=== PATIENT | male | born 1930 | race African-American/Black ===

== ENCOUNTER 2021-05-05 21:51 | Emergency (ER) | payer MEDICARE, MEDICAID ==
[2021-05-05] MEDS ORDERED: Lorazepam 2 MG/ML VIAL ONE (22:24)
[2021-05-05] MEDS ORDERED: levETIRAcetam in NS 100 ML ONE (22:43)
[2021-05-05 22:49] LABS: #Eosinphils 0.1 10x3/uL (0.0-0.5); #Monocytes 0.7 10x3/uL (0.0-1.1); #Neutrophils 4.7 10x3/uL (1.5-8.4); %Basophils 0.6 % (0.0-2.0); %Eosinophils 1.8 % (0.0-6.0); %Monocytes 10.2 % (0.0-10.0); Hemoglobin 13.7 g/dL (13.5-17.5); Mean Corpuscular HGB CONC 33.4 g/dL (32.0-36.0); Mean Corpuscular Hemoglobin 34.5 pg (27.0-33.0); Mean Corpuscular Volume 103.3 fl (81.2-95.1); Mean Platelet Volume 10.5 fl (7.4-10.4); Platelet Count 189 10x3/uL (150-450); RBC Distribution Width 13.1 % (11.5-14.5); Red Blood Cell (RBC) Count 3.97 10x6/uL (4.32-5.72); White Blood Cell (WBC) Count 7.2 10x3/uL (3.5-10.5)
[2021-05-05 22:53] LABS: INR-International Normal Ratio 1.1; PTT Less than 20.0 sec (22.0-33.0); Prothrombin Time 11.9 sec (9.5-12.1)
[2021-05-05 22:54] LABS: ALT (SGPT) 17 U/L (8-55); AST (SGOT) 17 U/L (5-34); Alkaline Phosphatase 65 U/L (40-110); Anion Gap 26 mmol/L (10-20); BUN (Urea Nitrogen) 18 mg/dL (8.4-25.7); Bilirubin, Total 0.4 mg/dL (0.2-1.2); Calc. Creatinine Clearance 0 mL/min (70-130); Carbon Dioxide 14 mmol/L (23-31); Chloride 100 mmol/L (98-107); Globulin 4.1 g/dL (2.4-3.5); Glucose 127 mg/dL (83-110); Potassium 3.7 mmol/L (3.5-5.1); Protein, Total 8.1 g/dL (5.8-8.1); Sodium 136 mmol/L (136-145)
[2021-05-05 23:45] LABS: SARS-CoV-2 NAA Rapid Test Not Detected (NotDetected)
[2021-05-06] MEDS ORDERED: PHENobarbital Sodium 65 MG/ML VIAL ONE (00:23)
[2021-05-06] MEDS ORDERED: Aspirin 300 MG Suppository ONE (00:24)
[2021-05-06] MEDS ORDERED: levETIRAcetam in NS 100 ML ONE (00:24)
[2021-05-06] MEDS ORDERED: hydrALAZINE 20 MG/ML VIAL ONE (03:09)
== END 2021-05-06 03:38 | disposition short-term general hospital (02) ==
LOC: EEVIPCON 21:51 → CSHERS 21:51
DX: I63.9 Cerebral infarction, unspecified (principal); G40.909 Epilepsy, unspecified, not intractable, without status epilepticus; Z20.822 Contact with and (suspected) exposure to COVID-19
CPT/HCPCS: 70450; 70496; 70498; 71045; 80053; 80184; 82962; 84484; 85025; 85610; 85730; 93005; U0002; 36416; 96365; 96375; 96376; J0360; J1953; J2060; J2560

== ENCOUNTER 2021-05-30 08:34 | Inpatient (IN) | payer MEDICARE, OTHER ==
[2021-05-30] MEDS ORDERED: Acetaminophen 500 MG TAB ONE (09:13)
[2021-05-30 09:23] LABS: #Monocytes 0.5 10x3/uL (0.0-1.1); %Basophils 0.1 % (0.0-2.0); %Eosinophils 0.1 % (0.0-6.0); %Lymphocytes 3.7 % (18.0-47.0); %Monocytes 6.2 % (0.0-10.0); %Neutrophils 89.1 % (40.0-75.0); Hemoglobin 14.1 g/dL (13.5-17.5); Mean Corpuscular HGB CONC 37.2 g/dL (32.0-36.0); Mean Corpuscular Hemoglobin 37.4 pg (27.0-33.0); Mean Corpuscular Volume 100.5 fl (81.2-95.1); Mean Platelet Volume 10.5 fl (7.4-10.4); Platelet Count 277 10x3/uL (150-450); RBC Distribution Width 12.4 % (11.5-14.5); Red Blood Cell (RBC) Count 3.77 10x6/uL (4.32-5.72); White Blood Cell (WBC) Count 7.9 10x3/uL (3.5-10.5)
[2021-05-30 09:37] LABS: ALT (SGPT) 37 U/L (8-55); AST (SGOT) 60 U/L (5-34); Albumin 3.6 g/dL (3.4-4.8); Alkaline Phosphatase 58 U/L (40-110); Anion Gap 20 mmol/L (10-20); BUN (Urea Nitrogen) 30 mg/dL (8.4-25.7); Bilirubin, Total 0.6 mg/dL (0.2-1.2); Calc. Creatinine Clearance 0 mL/min (70-130); Carbon Dioxide 20 mmol/L (23-31); Chloride 106 mmol/L (98-107); Globulin 4.9 g/dL (2.4-3.5); Glucose 151 mg/dL (83-110); Potassium 3.3 mmol/L (3.5-5.1); Protein, Total 8.5 g/dL (5.8-8.1); Sodium 143 mmol/L (136-145)
[2021-05-30] MEDS ORDERED: Cefepime 2 GM VIAL ONE (09:45)
[2021-05-30 09:55] LABS: CKMB 1.6 ng/mL (0-6.6)
[2021-05-30] MEDS ORDERED: Vancomycin 1.5 GRAM/300 ML BAG 1.5 GM in Premix Bag 1 BAG IVPB SCH (10:00)
[2021-05-30 10:03] LABS: SARS-CoV-2 NAA Rapid Test DETECTED (NotDetected)
[2021-05-30] MEDS ORDERED: HYDROcodone/Acetaminophen 5/325 mg Tablet PO PRN (12:01)
[2021-05-30] MEDS ORDERED: Ondansetron PF 4 MG/2 ML Vial IVP PRN (12:01)
[2021-05-30 13:09] LABS: Lactic Acid 1.3 mmol/L (0.5-2.2)
[2021-05-30] MEDS ORDERED: Electrolyte Replacement Protocol 1 EACH FS SCH (13:15)
[2021-05-30 13:19] LABS: Troponin I 0.043 ng/mL (< 0.028)
[2021-05-30] MEDS ORDERED: Magnesium 2 GM/50 ML 2 GM in Premix Bag 1 BAG IVPB SCH (15:00)
[2021-05-30] MEDS ORDERED: Potassium Chloride 20 MEQ TAB PO SCH (15:00)
[2021-05-30 17:04] LABS: Troponin I 0.038 ng/mL (< 0.028)
[2021-05-30] MEDS: PHENobarbital 32.4 MG TAB PO SCH ×2 (17:06→21:29)
[2021-05-30] MEDS: Sodium Chloride 0.9% 1,000 ML IV SCH (17:07)
[2021-05-30] MEDS ORDERED: Vancomycin 1 GM in Premix Bag 1 BAG IVPB PRN (21:00)
[2021-05-30] MEDS: levETIRAcetam 500 MG TAB PO SCH (21:32)
[2021-05-30] MEDS: Famotidine 20 MG TAB PO SCH (21:33)
[2021-05-31] MEDS ORDERED: hydrALAZINE 20 MG/ML VIAL SLOW IVP SCH (02:00)
[2021-05-31] MEDS: Sodium Chloride 0.9% 1,000 ML IV SCH ×2 (02:01→23:41)
[2021-05-31 05:50] LABS: Anion Gap 17 mmol/L (10-20); BUN (Urea Nitrogen) 23 mg/dL (8.4-25.7); Calc. Creatinine Clearance 41 mL/min (70-130); Calcium 8.2 mg/dL (7.8-10.44); Carbon Dioxide 19 mmol/L (23-31); Chloride 109 mmol/L (98-107); Glucose 103 mg/dL (83-110); Magnesium 2.1 mg/dL (1.6-2.6); Potassium 3.5 mmol/L (3.5-5.1); Sodium 141 mmol/L (136-145)
[2021-05-31 06:02] LABS: #Eosinphils 0.1 10x3/uL (0.0-0.5); #Monocytes 0.5 10x3/uL (0.0-1.1); #Neutrophils 6.3 10x3/uL (1.5-8.4); %Basophils 0.3 % (0.0-2.0); %Eosinophils 0.8 % (0.0-6.0); %Monocytes 6.8 % (0.0-10.0); %Neutrophils 84.6 % (40.0-75.0); Hemoglobin 13.2 g/dL (13.5-17.5); Mean Corpuscular HGB CONC 36.8 g/dL (32.0-36.0); Mean Corpuscular Hemoglobin 35.9 pg (27.0-33.0); Mean Corpuscular Volume 97.6 fl (81.2-95.1); Mean Platelet Volume 10.6 fl (7.4-10.4); Platelet Count 261 10x3/uL (150-450); RBC Distribution Width 12.7 % (11.5-14.5); Red Blood Cell (RBC) Count 3.68 10x6/uL (4.32-5.72); White Blood Cell (WBC) Count 7.5 10x3/uL (3.5-10.5)
[2021-05-31] MEDS: Levothyroxine Sodium 100 MCG TAB PO SCH (06:07)
[2021-05-31] MEDS ORDERED: Potassium Chloride 20 MEQ TAB PO SCH (06:15)
[2021-05-31] MEDS: Amlodipine 10 MG TAB PO SCH (08:24)
[2021-05-31] MEDS: Atorvastatin Calcium 20 MG TAB PO SCH (08:24)
[2021-05-31] MEDS: Clopidogrel Bisulfate 75 MG TAB PO SCH (08:24)
[2021-05-31] MEDS: levETIRAcetam 500 MG TAB PO SCH ×2 (08:24→21:24)
[2021-05-31] MEDS: PHENobarbital 32.4 MG TAB PO SCH ×3 (08:24→21:24)
[2021-05-31] MEDS: Tamsulosin HCl 0.4 MG CAP PO SCH (08:24)
[2021-05-31] MEDS: Polyethylene Glycol 3350 17 GM Packet PO SCH (08:25)
[2021-05-31] MEDS ORDERED: Enoxaparin Sodium 30 MG/0.3 ML SYRINGE SC SCH (09:00)
[2021-05-31] MEDS ORDERED: Cefepime 0.5 GM, Admixture Fee 1 EACH in Sodium Chloride 0.9% 100 ML IVPB SCH (10:00)
[2021-05-31 10:56] LABS: Vancomycin, Random 8.6 ug/mL (See Comment)
[2021-05-31] MEDS ORDERED: VANCOMYCIN 1.25 GM/250 ML BAG 1.25 GM in Premix Bag 1 BAG IVPB SCH (12:00)
[2021-05-31] MEDS: hydrALAZINE 25 MG TAB PO SCH (21:23)
[2021-05-31] MEDS: Famotidine 20 MG TAB PO SCH (21:24)
[2021-05-31] MEDS: Oxybutynin 5 MG TAB PO SCH (23:41)
[2021-06-01 04:44] LABS: Anion Gap 16 mmol/L (10-20); BUN (Urea Nitrogen) 17 mg/dL (8.4-25.7); Calc. Creatinine Clearance 44 mL/min (70-130); Calcium 8.3 mg/dL (7.8-10.44); Carbon Dioxide 18 mmol/L (23-31); Chloride 108 mmol/L (98-107); Glucose 107 mg/dL (83-110); Potassium 3.7 mmol/L (3.5-5.1); Sodium 138 mmol/L (136-145)
[2021-06-01 04:46] LABS: #Eosinphils 0.1 10x3/uL (0.0-0.5); #Monocytes 0.5 10x3/uL (0.0-1.1); #Neutrophils 6.5 10x3/uL (1.5-8.4); %Basophils 0.3 % (0.0-2.0); %Lymphocytes 6.5 % (18.0-47.0); %Monocytes 6.1 % (0.0-10.0); %Neutrophils 85.4 % (40.0-75.0); Hemoglobin 13.2 g/dL (13.5-17.5); Mean Corpuscular HGB CONC 37.3 g/dL (32.0-36.0); Mean Corpuscular Hemoglobin 36.9 pg (27.0-33.0); Mean Corpuscular Volume 98.9 fl (81.2-95.1); Mean Platelet Volume 10.6 fl (7.4-10.4); RBC Distribution Width 12.6 % (11.5-14.5); Red Blood Cell (RBC) Count 3.58 10x6/uL (4.32-5.72); White Blood Cell (WBC) Count 7.7 10x3/uL (3.5-10.5)
[2021-06-01 04:47] LABS: Platelet Count 257 10x3/uL (150-450)
[2021-06-01 05:15] LABS: Platelet Morphology Comment Appears Adequate; RBC Morphology Normal
[2021-06-01] MEDS: Levothyroxine Sodium 100 MCG TAB PO SCH (05:32)
[2021-06-01] MEDS: Oxybutynin 5 MG TAB PO SCH ×3 (05:32→17:45)
[2021-06-01] MEDS ORDERED: Dexamethasone 10 MG in Sodium Chloride 0.9% 50 ML IVPB ONE (07:30)
[2021-06-01] MEDS ORDERED: Dexamethasone 20 MG/5 ML VIAL SLOW IVP SCH (07:45)
[2021-06-01] MEDS ORDERED: REMDESIVIR 200 MG in Sodium Chloride 0.9% 250 ML 210 ML IV SCH (09:00)
[2021-06-01] MEDS: levETIRAcetam 500 MG TAB PO SCH ×2 (09:28→20:53)
[2021-06-01] MEDS: hydrALAZINE 25 MG TAB PO SCH ×3 (09:28→20:52)
[2021-06-01] MEDS: Atorvastatin Calcium 20 MG TAB PO SCH (09:28)
[2021-06-01] MEDS: Clopidogrel Bisulfate 75 MG TAB PO SCH (09:28)
[2021-06-01] MEDS: PHENobarbital 32.4 MG TAB PO SCH ×3 (09:29→20:52)
[2021-06-01] MEDS: Amlodipine 10 MG TAB PO SCH (09:29)
[2021-06-01] MEDS: Tamsulosin HCl 0.4 MG CAP PO SCH (09:29)
[2021-06-01] MEDS: Enoxaparin Sodium 40 MG/0.4 ML SYRINGE SC SCH (09:29)
[2021-06-01] MEDS: Finasteride 5 MG TAB PO SCH (09:29)
[2021-06-01] MEDS: Folic Acid 1 MG TAB PO SCH (09:29)
[2021-06-01] MEDS: Polyethylene Glycol 3350 17 GM Packet PO SCH (09:30)
[2021-06-01] MEDS: Cefepime 1 GM in Sodium Chloride 0.9% 100 ML IVPB SCH (13:30)
[2021-06-01] MEDS ORDERED: PHENobarbital 32.4 MG TAB ONE (16:04)
[2021-06-01] MEDS: Sodium Chloride 0.9% 1,000 ML IV SCH ×2 (16:13→19:32)
[2021-06-01] MEDS: Famotidine 20 MG TAB PO SCH (20:52)
[2021-06-01] MEDS: Lactated Ringer's 1,000 ML IV SCH (20:52)
[2021-06-01] MEDS: Acetaminophen 325 MG TAB PO PRN (20:53)
[2021-06-02] MEDS: Oxybutynin 5 MG TAB PO SCH ×4 (00:02→18:24)
[2021-06-02 04:22] LABS: #Eosinphils 0.1 10x3/uL (0.0-0.5); #Monocytes 0.4 10x3/uL (0.0-1.1); %Basophils 0.3 % (0.0-2.0); %Eosinophils 1.1 % (0.0-6.0); %Lymphocytes 8.8 % (18.0-47.0); %Monocytes 5.5 % (0.0-10.0); %Neutrophils 83.5 % (40.0-75.0); Hemoglobin 12.9 g/dL (13.5-17.5); Mean Corpuscular HGB CONC 37.5 g/dL (32.0-36.0); Mean Corpuscular Hemoglobin 36.3 pg (27.0-33.0); Mean Corpuscular Volume 96.9 fl (81.2-95.1); Mean Platelet Volume 10.2 fl (7.4-10.4); Platelet Count 240 10x3/uL (150-450); RBC Distribution Width 12.7 % (11.5-14.5); Red Blood Cell (RBC) Count 3.55 10x6/uL (4.32-5.72); White Blood Cell (WBC) Count 7.1 10x3/uL (3.5-10.5)
[2021-06-02 04:40] LABS: ALT (SGPT) 27 U/L (8-55); AST (SGOT) 39 U/L (5-34); Albumin 2.9 g/dL (3.4-4.8); Alkaline Phosphatase 53 U/L (40-110); Anion Gap 13 mmol/L (10-20); BUN (Urea Nitrogen) 17 mg/dL (8.4-25.7); Bilirubin, Direct 0.3 mg/dL (0.1-0.3); Bilirubin, Total 0.4 mg/dL (0.2-1.2); Calc. Creatinine Clearance 53 mL/min (70-130); Calcium 8.4 mg/dL (7.8-10.44); Carbon Dioxide 21 mmol/L (23-31); Chloride 107 mmol/L (98-107); Glucose 109 mg/dL (83-110); Potassium 3.3 mmol/L (3.5-5.1); Protein, Total 7.2 g/dL (5.8-8.1); Sodium 138 mmol/L (136-145)
[2021-06-02] MEDS: Levothyroxine Sodium 100 MCG TAB PO SCH (05:37)
[2021-06-02] MEDS ORDERED: Potassium Chloride 20 MEQ TAB PO SCH (06:00)
[2021-06-02] MEDS: REMDESIVIR 100 MG in Sodium Chloride 0.9% 250 ML 230 ML IV SCH (08:30)
[2021-06-02] MEDS: hydrALAZINE 25 MG TAB PO SCH ×3 (10:23→20:22)
[2021-06-02] MEDS: Polyethylene Glycol 3350 17 GM Packet PO SCH (10:23)
[2021-06-02] MEDS: levETIRAcetam 500 MG TAB PO SCH ×2 (10:25→20:22)
[2021-06-02] MEDS: Amlodipine 10 MG TAB PO SCH (10:26)
[2021-06-02] MEDS: Finasteride 5 MG TAB PO SCH (10:27)
[2021-06-02] MEDS: Folic Acid 1 MG TAB PO SCH (10:27)
[2021-06-02] MEDS: Clopidogrel Bisulfate 75 MG TAB PO SCH (10:27)
[2021-06-02] MEDS: Atorvastatin Calcium 20 MG TAB PO SCH (10:27)
[2021-06-02] MEDS: PHENobarbital 32.4 MG TAB PO SCH ×3 (10:28→20:22)
[2021-06-02] MEDS: Tamsulosin HCl 0.4 MG CAP PO SCH (10:28)
[2021-06-02] MEDS: Cefepime 1 GM in Sodium Chloride 0.9% 100 ML IVPB SCH (10:29)
[2021-06-02] MEDS: Enoxaparin Sodium 40 MG/0.4 ML SYRINGE SC SCH (10:30)
[2021-06-02] MEDS ORDERED: Dexamethasone 10 MG in Sodium Chloride 0.9% 50 ML IVPB ONE (12:01)
[2021-06-02] MEDS ORDERED: Dexamethasone 20 MG/5 ML VIAL SLOW IVP SCH ×2 (12:30→12:45)
[2021-06-02] MEDS: Lactated Ringer's 1,000 ML IV SCH (13:48)
[2021-06-02] MEDS ORDERED: Piperacillin/Tazobactam 3.375 GM in Sodium Chloride 0.9% 100 ML IVPB SCH (15:45)
[2021-06-02] MEDS: Piperacillin/Tazobactam 3.375 GM in Sodium Chloride 0.9% 100 ML IVPB SCH (20:21)
[2021-06-02] MEDS: Famotidine 20 MG TAB PO SCH (20:22)
[2021-06-02] MEDS: Acetaminophen 325 MG TAB PO PRN (20:22)
[2021-06-03] MEDS: Oxybutynin 5 MG TAB PO SCH ×4 (00:01→18:35)
[2021-06-03] MEDS: Lactated Ringer's 1,000 ML IV SCH ×2 (00:01→15:55)
[2021-06-03 00:21] LABS: Bilirubin Neg (Negative); Blood, Urine 25 (Negative); Clarity Slightly Cloudy (Clear); Glucose, Urine (Dipstick) Normal (Negative); Ketone, Urine Negative (Negative); Leukocyte Negative (Negative); Nitrite Negative (Negative); Protein, Urine (Dipstick) 100 mg/dl (Neg-Trace); Specific Gravity, Urine 1.015 (1.002-1.036); Urobilinogen Normal mg/dL (Less than 2)
[2021-06-03 00:31] LABS: Bacteria/HPF Rare-Few HPF (None Seen); RBC/HPF 0-3 HPF (0-3); Squamous Epithelial 0-3 HPF (0-3); WBC/HPF 0-3 HPF (0-3)
[2021-06-03 00:32] LABS: Urine Culture Reflex No No
[2021-06-03] MEDS: Piperacillin/Tazobactam 3.375 GM in Sodium Chloride 0.9% 100 ML IVPB SCH ×4 (04:05→22:00)
[2021-06-03] MEDS: Levothyroxine Sodium 100 MCG TAB PO SCH (05:20)
[2021-06-03 06:34] LABS: ALT (SGPT) 23 U/L (8-55); AST (SGOT) 31 U/L (5-34); Albumin 2.8 g/dL (3.4-4.8); Alkaline Phosphatase 60 U/L (40-110); Anion Gap 15 mmol/L (10-20); BUN (Urea Nitrogen) 16 mg/dL (8.4-25.7); Bilirubin, Direct 0.3 mg/dL (0.1-0.3); Bilirubin, Total 0.5 mg/dL (0.2-1.2); Calc. Creatinine Clearance 52 mL/min (70-130); Calcium 8.1 mg/dL (7.8-10.44); Carbon Dioxide 20 mmol/L (23-31); Chloride 106 mmol/L (98-107); Glucose 111 mg/dL (83-110); Potassium 3.3 mmol/L (3.5-5.1); Protein, Total 7.2 g/dL (5.8-8.1); Sodium 138 mmol/L (136-145)
[2021-06-03 06:37] LABS: #Eosinphils 0.1 10x3/uL (0.0-0.5); #Monocytes 0.7 10x3/uL (0.0-1.1); #Neutrophils 6.8 10x3/uL (1.5-8.4); %Basophils 0.2 % (0.0-2.0); %Eosinophils 1.4 % (0.0-6.0); %Lymphocytes 5.9 % (18.0-47.0); %Neutrophils 83.5 % (40.0-75.0); Hemoglobin 13.4 g/dL (13.5-17.5); Mean Corpuscular HGB CONC 36.1 g/dL (32.0-36.0); Mean Corpuscular Hemoglobin 34.8 pg (27.0-33.0); Mean Corpuscular Volume 96.4 fl (81.2-95.1); Mean Platelet Volume 10.7 fl (7.4-10.4); Platelet Count 264 10x3/uL (150-450); RBC Distribution Width 12.9 % (11.5-14.5); Red Blood Cell (RBC) Count 3.85 10x6/uL (4.32-5.72); White Blood Cell (WBC) Count 8.1 10x3/uL (3.5-10.5)
[2021-06-03] MEDS ORDERED: Potassium Chloride 20 MEQ TAB PO SCH (08:00)
[2021-06-03] MEDS: levETIRAcetam 500 mg/5 ml Oral Solution PO SCH ×2 (08:53→22:03)
[2021-06-03] MEDS: Dexamethasone 20 MG/5 ML VIAL SLOW IVP SCH ×2 (08:53→13:08)
[2021-06-03] MEDS: REMDESIVIR 100 MG in Sodium Chloride 0.9% 250 ML 230 ML IV SCH ×2 (08:53→13:08)
[2021-06-03] MEDS: Enoxaparin Sodium 40 MG/0.4 ML SYRINGE SC SCH (08:54)
[2021-06-03] MEDS: Polyethylene Glycol 3350 17 GM Packet PO SCH (08:54)
[2021-06-03] MEDS: hydrALAZINE 25 MG TAB PO SCH ×3 (08:59→21:59)
[2021-06-03] MEDS ORDERED: Dexamethasone 20 MG/5 ML VIAL SLOW IVP SCH (09:00)
[2021-06-03] MEDS: PHENobarbital 32.4 MG TAB PO SCH ×3 (09:00→21:59)
[2021-06-03] MEDS ORDERED: Dexamethasone 6 MG in Sodium Chloride 0.9% 50 ML IVPB SCH (09:00)
[2021-06-03] MEDS: Amlodipine 10 MG TAB PO SCH (09:00)
[2021-06-03] MEDS ORDERED: Potassium Bicarbonate/Cit Ac 20 MEQ TAB PER TUBE SCH (09:00)
[2021-06-03] MEDS: Clopidogrel Bisulfate 75 MG TAB PO SCH (09:00)
[2021-06-03] MEDS: Folic Acid 1 MG TAB PO SCH (09:00)
[2021-06-03] MEDS: Atorvastatin Calcium 20 MG TAB PO SCH (09:00)
[2021-06-03] MEDS: Finasteride 5 MG TAB PO SCH (10:23)
[2021-06-03] MEDS: Tamsulosin HCl 0.4 MG CAP PO SCH (10:24)
[2021-06-03 14:04] LABS: Actual Bicarbonate (HCO3a) 21.8 mEq/L (22-28); Base Excess (BEa) 0.1 mEq/L (-2.0 to +3.0); CO2 Tension 27.8 mmHg (35.0-45.0); Carboxyhemoglobin (COHb) 0.4 gm% (0.0-3.0); Hemoglobin (Hb) 13.8 g/dL (14.0-18.0); O2 Tension (PaO2), arterial 136.9 mmHg (> 60.0); Potassium - ABG Lab 3.4 mmol/L (3.70-5.30); Puncture Site RRA; pH, Arterial 7.51 (7.35-7.45)
[2021-06-03 15:35] LABS: Potassium 3.9 mmol/L (3.5-5.1)
[2021-06-03] MEDS: Famotidine 20 MG TAB PO SCH (21:59)
[2021-06-04] MEDS: Oxybutynin 5 MG TAB PO SCH ×5 (00:25→22:54)
[2021-06-04] MEDS: hydrALAZINE 20 MG/ML VIAL SLOW IVP PRN ×2 (00:35→06:08)
[2021-06-04 04:42] LABS: #Eosinphils 0.1 10x3/uL (0.0-0.5); #Monocytes 0.8 10x3/uL (0.0-1.1); #Neutrophils 6.7 10x3/uL (1.5-8.4); %Basophils 0.4 % (0.0-2.0); %Eosinophils 0.8 % (0.0-6.0); %Lymphocytes 7.4 % (18.0-47.0); %Monocytes 9.7 % (0.0-10.0); %Neutrophils 79.9 % (40.0-75.0); Hemoglobin 12.7 g/dL (13.5-17.5); Mean Corpuscular HGB CONC 35.6 g/dL (32.0-36.0); Mean Corpuscular Hemoglobin 34.2 pg (27.0-33.0); Mean Corpuscular Volume 96.2 fl (81.2-95.1); Mean Platelet Volume 10.8 fl (7.4-10.4); Platelet Count 286 10x3/uL (150-450); RBC Distribution Width 13.1 % (11.5-14.5); Red Blood Cell (RBC) Count 3.71 10x6/uL (4.32-5.72); White Blood Cell (WBC) Count 8.3 10x3/uL (3.5-10.5)
[2021-06-04 04:49] LABS: Anion Gap 15 mmol/L (10-20); BUN (Urea Nitrogen) 17 mg/dL (8.4-25.7); Calc. Creatinine Clearance 53 mL/min (70-130); Calcium 7.6 mg/dL (7.8-10.44); Carbon Dioxide 21 mmol/L (23-31); Chloride 105 mmol/L (98-107); Glucose 103 mg/dL (83-110); Phosphorus 2.2 mg/dL (2.3-4.7); Potassium 3.4 mmol/L (3.5-5.1); Sodium 138 mmol/L (136-145)
[2021-06-04 04:52] LABS: ALT (SGPT) 25 U/L (8-55); AST (SGOT) 35 U/L (5-34); Albumin 2.6 g/dL (3.4-4.8); Alkaline Phosphatase 59 U/L (40-110); Bilirubin, Direct 0.3 mg/dL (0.1-0.3); Bilirubin, Total 0.4 mg/dL (0.2-1.2); Magnesium 1.6 mg/dL (1.6-2.6); Protein, Total 6.8 g/dL (5.8-8.1)
[2021-06-04] MEDS: Levothyroxine Sodium 100 MCG TAB PO SCH (05:16)
[2021-06-04] MEDS: Piperacillin/Tazobactam 3.375 GM in Sodium Chloride 0.9% 100 ML IVPB SCH ×3 (05:17→22:56)
[2021-06-04] MEDS ORDERED: Magnesium 2 GM/50 ML 2 GM in Premix Bag 1 BAG IVPB SCH (05:45)
[2021-06-04] MEDS ORDERED: Potassium Chloride 20 MEQ TAB PO SCH (06:00)
[2021-06-04] MEDS: Lactated Ringer's 1,000 ML IV SCH ×2 (06:56→11:31)
[2021-06-04] MEDS: Enoxaparin Sodium 40 MG/0.4 ML SYRINGE SC SCH (08:56)
[2021-06-04] MEDS: Polyethylene Glycol 3350 17 GM Packet PO SCH (08:56)
[2021-06-04] MEDS: hydrALAZINE 25 MG TAB PO SCH ×3 (08:57→22:53)
[2021-06-04] MEDS: Clopidogrel Bisulfate 75 MG TAB PO SCH (08:57)
[2021-06-04] MEDS: Finasteride 5 MG TAB PO SCH (08:57)
[2021-06-04] MEDS: Dexamethasone 20 MG/5 ML VIAL SLOW IVP SCH (08:57)
[2021-06-04] MEDS: Tamsulosin HCl 0.4 MG CAP PO SCH (08:57)
[2021-06-04] MEDS: Famotidine 20 MG TAB PO SCH ×2 (08:57→22:53)
[2021-06-04] MEDS: Amlodipine 10 MG TAB PO SCH (08:57)
[2021-06-04] MEDS: Atorvastatin Calcium 20 MG TAB PO SCH (08:57)
[2021-06-04] MEDS: Folic Acid 1 MG TAB PO SCH (08:57)
[2021-06-04] MEDS: PHENobarbital 32.4 MG TAB PO SCH ×3 (08:57→22:53)
[2021-06-04] MEDS: levETIRAcetam 500 mg/5 ml Oral Solution PO SCH ×2 (10:24→22:55)
[2021-06-04] MEDS ORDERED: Metoprolol Tartrate 5 MG/5 ML VIAL IVP PRN (10:28)
[2021-06-04] MEDS: REMDESIVIR 100 MG in Sodium Chloride 0.9% 250 ML 230 ML IV SCH (12:38)
[2021-06-04 13:06] LABS: Potassium 4.1 mmol/L (3.5-5.1)
[2021-06-04] MEDS ORDERED: Lisinopril 20 MG TAB PO SCH (13:30)
[2021-06-05 04:07] LABS: #Eosinphils 0.1 10x3/uL (0.0-0.5); #Monocytes 0.8 10x3/uL (0.0-1.1); #Neutrophils 8.1 10x3/uL (1.5-8.4); %Basophils 0.3 % (0.0-2.0); %Eosinophils 0.9 % (0.0-6.0); %Monocytes 8.1 % (0.0-10.0); %Neutrophils 82.8 % (40.0-75.0); Hemoglobin 12.5 g/dL (13.5-17.5); Mean Corpuscular HGB CONC 35.7 g/dL (32.0-36.0); Mean Corpuscular Hemoglobin 35.1 pg (27.0-33.0); Mean Corpuscular Volume 98.3 fl (81.2-95.1); Mean Platelet Volume 10.9 fl (7.4-10.4); Platelet Count 331 10x3/uL (150-450); RBC Distribution Width 13.3 % (11.5-14.5); Red Blood Cell (RBC) Count 3.56 10x6/uL (4.32-5.72); White Blood Cell (WBC) Count 9.8 10x3/uL (3.5-10.5)
[2021-06-05 04:17] LABS: ALT (SGPT) 34 U/L (8-55); AST (SGOT) 48 U/L (5-34); Albumin 2.5 g/dL (3.4-4.8); Alkaline Phosphatase 56 U/L (40-110); Anion Gap 16 mmol/L (10-20); BUN (Urea Nitrogen) 24 mg/dL (8.4-25.7); Bilirubin, Direct 0.1 mg/dL (0.1-0.3); Bilirubin, Total 0.3 mg/dL (0.2-1.2); Calc. Creatinine Clearance 48 mL/min (70-130); Carbon Dioxide 19 mmol/L (23-31); Chloride 108 mmol/L (98-107); Glucose 150 mg/dL (83-110); Magnesium 2.1 mg/dL (1.6-2.6); Potassium 4.1 mmol/L (3.5-5.1); Protein, Total 6.6 g/dL (5.8-8.1); Sodium 139 mmol/L (136-145)
[2021-06-05] MEDS: Lactated Ringer's 1,000 ML IV SCH (06:56)
[2021-06-05] MEDS: Piperacillin/Tazobactam 3.375 GM in Sodium Chloride 0.9% 100 ML IVPB SCH ×3 (06:57→21:56)
[2021-06-05] MEDS: Oxybutynin 5 MG TAB PO SCH ×4 (06:57→21:59)
[2021-06-05] MEDS: Levothyroxine Sodium 100 MCG TAB PO SCH (06:57)
[2021-06-05] MEDS: Polyethylene Glycol 3350 17 GM Packet PO SCH (08:35)
[2021-06-05] MEDS: Famotidine 20 MG TAB PO SCH (08:35)
[2021-06-05] MEDS: Dexamethasone 20 MG/5 ML VIAL SLOW IVP SCH (08:35)
[2021-06-05] MEDS: Clopidogrel Bisulfate 75 MG TAB PO SCH (08:35)
[2021-06-05] MEDS: Finasteride 5 MG TAB PO SCH (08:35)
[2021-06-05] MEDS: PHENobarbital 32.4 MG TAB PO SCH ×3 (08:35→21:59)
[2021-06-05] MEDS: PHOS-NAK 1 PKT PACK PO SCH ×2 (08:35→11:51)
[2021-06-05] MEDS: levETIRAcetam 500 mg/5 ml Oral Solution PO SCH ×2 (08:35→21:58)
[2021-06-05] MEDS: hydrALAZINE 25 MG TAB PO SCH ×3 (08:35→21:58)
[2021-06-05] MEDS: Amlodipine 10 MG TAB PO SCH (08:35)
[2021-06-05] MEDS: Enoxaparin Sodium 40 MG/0.4 ML SYRINGE SC SCH (08:35)
[2021-06-05] MEDS: Folic Acid 1 MG TAB PO SCH (08:36)
[2021-06-05] MEDS: Tamsulosin HCl 0.4 MG CAP PO SCH (08:36)
[2021-06-05] MEDS: Atorvastatin Calcium 20 MG TAB PO SCH (08:36)
[2021-06-05] MEDS: Lisinopril 20 MG TAB PO SCH (08:36)
[2021-06-05] MEDS: REMDESIVIR 100 MG in Sodium Chloride 0.9% 250 ML 230 ML IV SCH (08:38)
[2021-06-05] MEDS ORDERED: Chloraseptic Spray 180 ml Bottle PO PRN (17:43)
[2021-06-06 05:03] LABS: #Eosinphils 0.1 10x3/uL (0.0-0.5); #Monocytes 1.1 10x3/uL (0.0-1.1); #Neutrophils 8.1 10x3/uL (1.5-8.4); %Basophils 0.3 % (0.0-2.0); %Eosinophils 1.3 % (0.0-6.0); %Lymphocytes 4.7 % (18.0-47.0); %Monocytes 10.8 % (0.0-10.0); %Neutrophils 81.9 % (40.0-75.0); Hemoglobin 13.2 g/dL (13.5-17.5); Mean Corpuscular HGB CONC 33.8 g/dL (32.0-36.0); Mean Corpuscular Hemoglobin 33.5 pg (27.0-33.0); Mean Corpuscular Volume 99.2 fl (81.2-95.1); Mean Platelet Volume 10.5 fl (7.4-10.4); Platelet Count 360 10x3/uL (150-450); RBC Distribution Width 13.3 % (11.5-14.5); Red Blood Cell (RBC) Count 3.94 10x6/uL (4.32-5.72); White Blood Cell (WBC) Count 9.8 10x3/uL (3.5-10.5)
[2021-06-06 05:14] LABS: Anion Gap 14 mmol/L (10-20); BUN (Urea Nitrogen) 22 mg/dL (8.4-25.7); Calc. Creatinine Clearance 52 mL/min (70-130); Carbon Dioxide 23 mmol/L (23-31); Chloride 108 mmol/L (98-107); Glucose 106 mg/dL (83-110); Phosphorus 2.1 mg/dL (2.3-4.7); Potassium 3.6 mmol/L (3.5-5.1); Sodium 141 mmol/L (136-145)
[2021-06-06] MEDS: Piperacillin/Tazobactam 3.375 GM in Sodium Chloride 0.9% 100 ML IVPB SCH ×3 (05:27→21:25)
[2021-06-06] MEDS: Oxybutynin 5 MG TAB PO SCH ×4 (05:27→21:24)
[2021-06-06] MEDS: Levothyroxine Sodium 100 MCG TAB PO SCH (05:27)
[2021-06-06] MEDS: PHENobarbital 32.4 MG TAB PO SCH ×3 (08:57→21:24)
[2021-06-06] MEDS: Dexamethasone 20 MG/5 ML VIAL SLOW IVP SCH (08:57)
[2021-06-06] MEDS: Amlodipine 10 MG TAB PO SCH (08:57)
[2021-06-06] MEDS: levETIRAcetam 500 mg/5 ml Oral Solution PO SCH ×2 (08:57→21:24)
[2021-06-06] MEDS: Tamsulosin HCl 0.4 MG CAP PO SCH (08:58)
[2021-06-06] MEDS: Enoxaparin Sodium 40 MG/0.4 ML SYRINGE SC SCH (08:58)
[2021-06-06] MEDS: Famotidine 20 MG TAB PO SCH (08:58)
[2021-06-06] MEDS: Lisinopril 20 MG TAB PO SCH (08:58)
[2021-06-06] MEDS: Clopidogrel Bisulfate 75 MG TAB PO SCH (08:58)
[2021-06-06] MEDS: Finasteride 5 MG TAB PO SCH (08:58)
[2021-06-06] MEDS: Polyethylene Glycol 3350 17 GM Packet PO SCH (08:58)
[2021-06-06] MEDS: Atorvastatin Calcium 20 MG TAB PO SCH (08:58)
[2021-06-06] MEDS: hydrALAZINE 25 MG TAB PO SCH ×3 (08:58→21:24)
[2021-06-06] MEDS: Folic Acid 1 MG TAB PO SCH (08:58)
[2021-06-07] MEDS: Acetaminophen 325 MG TAB PO PRN ×3 (00:28→20:36)
[2021-06-07] MEDS: Oxybutynin 5 MG TAB PO SCH ×4 (05:15→23:11)
[2021-06-07] MEDS: Levothyroxine Sodium 100 MCG TAB PO SCH (05:15)
[2021-06-07] MEDS: Piperacillin/Tazobactam 3.375 GM in Sodium Chloride 0.9% 100 ML IVPB SCH ×3 (05:15→23:11)
[2021-06-07] MEDS: Dexamethasone 20 MG/5 ML VIAL SLOW IVP SCH (09:37)
[2021-06-07] MEDS: levETIRAcetam 500 mg/5 ml Oral Solution PO SCH ×2 (09:37→20:24)
[2021-06-07] MEDS: Enoxaparin Sodium 40 MG/0.4 ML SYRINGE SC SCH (09:38)
[2021-06-07] MEDS: Atorvastatin Calcium 20 MG TAB PO SCH (09:38)
[2021-06-07] MEDS: Famotidine 20 MG TAB PO SCH (09:38)
[2021-06-07] MEDS: Clopidogrel Bisulfate 75 MG TAB PO SCH (09:38)
[2021-06-07] MEDS: Polyethylene Glycol 3350 17 GM Packet PO SCH (09:38)
[2021-06-07] MEDS: Amlodipine 10 MG TAB PO SCH (09:38)
[2021-06-07] MEDS: Lisinopril 20 MG TAB PO SCH (09:38)
[2021-06-07] MEDS: Folic Acid 1 MG TAB PO SCH (09:38)
[2021-06-07] MEDS: hydrALAZINE 25 MG TAB PO SCH ×3 (09:38→20:22)
[2021-06-07] MEDS: PHENobarbital 32.4 MG TAB PO SCH ×3 (09:38→20:22)
[2021-06-07] MEDS: Tamsulosin HCl 0.4 MG CAP PO SCH (09:38)
[2021-06-07] MEDS: Finasteride 5 MG TAB PO SCH (09:39)
[2021-06-07 19:58] LABS: Actual Bicarbonate (HCO3a) 26.9 mEq/L (22-28); Base Excess (BEa) 2.4 mEq/L (-2.0 to +3.0); CO2 Tension 41.6 mmHg (35.0-45.0); Calcium, Ionized (arterial) 1.11 mmol/L (1.12-1.30); Carboxyhemoglobin (COHb) 0.4 gm% (0.0-3.0); Hemoglobin (Hb) 13.1 g/dL (14.0-18.0); O2 Tension (PaO2), arterial 58.6 mmHg (> 60.0); Potassium - ABG Lab 4.2 mmol/L (3.70-5.30); Puncture Site RRA; pH, Arterial 7.43 (7.35-7.45)
[2021-06-07] MEDS: hydrALAZINE 20 MG/ML VIAL SLOW IVP PRN (20:22)
[2021-06-08] MEDS: Levothyroxine Sodium 100 MCG TAB PO SCH (05:15)
[2021-06-08] MEDS: Acetaminophen 325 MG TAB PO PRN (05:16)
[2021-06-08] MEDS: Piperacillin/Tazobactam 3.375 GM in Sodium Chloride 0.9% 100 ML IVPB SCH ×3 (05:17→23:14)
[2021-06-08] MEDS: Oxybutynin 5 MG TAB PO SCH ×4 (05:21→23:17)
[2021-06-08] MEDS: PHENobarbital 32.4 MG TAB PO SCH ×3 (09:10→23:13)
[2021-06-08] MEDS: Clopidogrel Bisulfate 75 MG TAB PO SCH (09:10)
[2021-06-08] MEDS: hydrALAZINE 25 MG TAB PO SCH ×3 (09:11→23:13)
[2021-06-08] MEDS: Enoxaparin Sodium 40 MG/0.4 ML SYRINGE SC SCH (09:11)
[2021-06-08] MEDS: Lisinopril 20 MG TAB PO SCH (09:11)
[2021-06-08] MEDS: Folic Acid 1 MG TAB PO SCH (09:11)
[2021-06-08] MEDS: Amlodipine 10 MG TAB PO SCH (09:11)
[2021-06-08] MEDS: Atorvastatin Calcium 20 MG TAB PO SCH (09:11)
[2021-06-08] MEDS: Dexamethasone 20 MG/5 ML VIAL SLOW IVP SCH ×2 (09:11→23:15)
[2021-06-08] MEDS: Famotidine 20 MG TAB PO SCH (09:11)
[2021-06-08] MEDS: Polyethylene Glycol 3350 17 GM Packet PO SCH (09:12)
[2021-06-08] MEDS: Tamsulosin HCl 0.4 MG CAP PO SCH (09:12)
[2021-06-08] MEDS: Finasteride 5 MG TAB PO SCH (09:13)
[2021-06-08] MEDS: levETIRAcetam 500 mg/5 ml Oral Solution PO SCH ×2 (09:15→23:16)
[2021-06-08 11:03] LABS: Actual Bicarbonate (HCO3a) 25.7 mEq/L (22-28); Base Excess (BEa) 2.9 mEq/L (-2.0 to +3.0); CO2 Tension 33.2 mmHg (35.0-45.0); Calcium, Ionized (arterial) 1.09 mmol/L (1.12-1.30); Carboxyhemoglobin (COHb) 0.3 gm% (0.0-3.0); Hemoglobin (Hb) 11.9 g/dL (14.0-18.0); O2 Tension (PaO2), arterial 82.7 mmHg (> 60.0); Potassium - ABG Lab 4.2 mmol/L (3.70-5.30); Puncture Site RRA; pH, Arterial 7.51 (7.35-7.45)
[2021-06-08] MEDS ORDERED: Furosemide 40 MG/4 ML VIAL SLOW IVP SCH (13:00)
[2021-06-08] MEDS ORDERED: BARICITINIB 2 MG TAB PO SCH (14:15)
[2021-06-08] MEDS ORDERED: Electrolyte Replacement Protocol 1 EACH FS ONE (16:10)
[2021-06-08] MEDS ORDERED: Ventilator Sedation Protocol 1 EACH FS ONE (16:10)
[2021-06-08] MEDS ORDERED: Succinylcholine Chloride 200 MG/10 ML VIAL IVP SCH (16:15)
[2021-06-08] MEDS ORDERED: Norepinephrine 8 MG/0.9% NS 250 ML ONE (16:53)
[2021-06-08] MEDS ORDERED: DISCONTINUE PREVIOUS NARCOTIC PAIN MEDICATIONS AND BENZODIAZEPINES FS SCH (17:00)
[2021-06-08] MEDS ORDERED: Lorazepam 2 MG/ML VIAL SLOW IVP PRN (17:00)
[2021-06-08] MEDS ORDERED: Fentanyl BOLUS 250 ML IVPB PRN (17:00)
[2021-06-08] MEDS ORDERED: Morphine 2 MG/ML VIAL SLOW IVP PRN (17:00)
[2021-06-08] MEDS ORDERED: Morphine 4 MG/ML VIAL SLOW IVP PRN (17:00)
[2021-06-08] MEDS ORDERED: Propofol BOLUS 1,000 MG/100 ML VIAL IV PRN (17:00)
[2021-06-08] MEDS ORDERED: Rocuronium Bromide 10 MG/ML (10ML VIAL) ONE (17:30)
[2021-06-08 17:35] LABS: Actual Bicarbonate (HCO3a) 23.3 mEq/L (22-28); Base Excess (BEa) -0.9 mEq/L (-2.0 to +3.0); CO2 Tension 36.9 mmHg (35.0-45.0); Calcium, Ionized (arterial) 1.11 mmol/L (1.12-1.30); Carboxyhemoglobin (COHb) 0.4 gm% (0.0-3.0); Hemoglobin (Hb) 12.6 g/dL (14.0-18.0); O2 Tension (PaO2), arterial 61.6 mmHg (> 60.0); Potassium - ABG Lab 4.7 mmol/L (3.70-5.30); Puncture Site RRA; pH, Arterial 7.42 (7.35-7.45)
[2021-06-08 17:39] LABS: ALV-art Gradient 605.275 mmHg (0-20)
[2021-06-08] MEDS: fentaNYL Citrate-0.9 % NaCl/PF 100 ML IVPB SCH (17:52)
[2021-06-08] MEDS ORDERED: Vasopressin 20 UNIT, Admixture Fee 1 EACH in Sodium Chloride 0.9% 50 ML IV PRN (21:00)
[2021-06-08] MEDS: Propofol 1,000 MG/100 ML VIAL IV PRN (21:07)
[2021-06-09] MEDS: Norepinephrine 8 MG/0.9% NS 250 ML IVPB SCH (01:20)
[2021-06-09] MEDS: Piperacillin/Tazobactam 3.375 GM in Sodium Chloride 0.9% 100 ML IVPB SCH ×3 (06:06→21:21)
[2021-06-09] MEDS: Levothyroxine Sodium 100 MCG TAB PO SCH (06:06)
[2021-06-09] MEDS: Oxybutynin 5 MG TAB PO SCH ×3 (06:06→17:32)
[2021-06-09 06:11] LABS: Actual Bicarbonate (HCO3a) 25.5 mEq/L (22-28); Calcium, Ionized (arterial) 1.06 mmol/L (1.12-1.30); Carboxyhemoglobin (COHb) 0.3 gm% (0.0-3.0); Hemoglobin (Hb) 11.1 g/dL (14.0-18.0); O2 Tension (PaO2), arterial 77.3 mmHg (> 60.0); Potassium - ABG Lab 4.2 mmol/L (3.70-5.30); Puncture Site RRA; pH, Arterial 7.42 (7.35-7.45)
[2021-06-09] MEDS ORDERED: Furosemide 40 MG/4 ML VIAL SLOW IVP SCH (09:00)
[2021-06-09] MEDS ORDERED: BARICITINIB 2 MG TAB PO SCH (09:00)
[2021-06-09] MEDS: Amlodipine 10 MG TAB PO SCH (09:36)
[2021-06-09] MEDS: hydrALAZINE 25 MG TAB PO SCH (09:37)
[2021-06-09] MEDS: Lisinopril 20 MG TAB PO SCH (09:37)
[2021-06-09] MEDS: PHENobarbital 32.4 MG TAB PO SCH ×3 (09:43→21:20)
[2021-06-09] MEDS: Clopidogrel Bisulfate 75 MG TAB PO SCH (09:44)
[2021-06-09] MEDS: Famotidine 20 MG TAB PO SCH (09:44)
[2021-06-09] MEDS: Enoxaparin Sodium 40 MG/0.4 ML SYRINGE SC SCH (09:44)
[2021-06-09] MEDS: Atorvastatin Calcium 20 MG TAB PO SCH (09:44)
[2021-06-09] MEDS: Folic Acid 1 MG TAB PO SCH (09:44)
[2021-06-09] MEDS: Dexamethasone 20 MG/5 ML VIAL SLOW IVP SCH ×2 (09:45→21:22)
[2021-06-09] MEDS: levETIRAcetam 500 mg/5 ml Oral Solution PO SCH (09:46)
[2021-06-09] MEDS: Polyethylene Glycol 3350 17 GM Packet PO SCH (09:46)
[2021-06-09] MEDS: Tamsulosin HCl 0.4 MG CAP PO SCH (09:50)
[2021-06-09] MEDS: Finasteride 5 MG TAB PO SCH (09:50)
[2021-06-09 09:54] LABS: #Monocytes 1.2 10x3/uL (0.0-1.1); #Neutrophils 8.1 10x3/uL (1.5-8.4); %Basophils 0.2 % (0.0-2.0); %Eosinophils 0.3 % (0.0-6.0); %Lymphocytes 6.2 % (18.0-47.0); %Monocytes 12.2 % (0.0-10.0); %Neutrophils 79.9 % (40.0-75.0); Hemoglobin 9.4 g/dL (13.5-17.5); Mean Corpuscular HGB CONC 32.8 g/dL (32.0-36.0); Mean Corpuscular Hemoglobin 33.1 pg (27.0-33.0); Mean Corpuscular Volume 101.1 fl (81.2-95.1); Mean Platelet Volume 10.5 fl (7.4-10.4); Platelet Count 310 10x3/uL (150-450); RBC Distribution Width 13.8 % (11.5-14.5); Red Blood Cell (RBC) Count 2.84 10x6/uL (4.32-5.72); White Blood Cell (WBC) Count 10.2 10x3/uL (3.5-10.5)
[2021-06-09 10:06] LABS: Anion Gap 13 mmol/L (10-20); BUN (Urea Nitrogen) 33 mg/dL (8.4-25.7); Calc. Creatinine Clearance 33 mL/min (70-130); Calcium 7.9 mg/dL (7.8-10.44); Carbon Dioxide 26 mmol/L (23-31); Chloride 105 mmol/L (98-107); Glucose 139 mg/dL (83-110); Potassium 4.3 mmol/L (3.5-5.1); Sodium 140 mmol/L (136-145)
[2021-06-09] MEDS: levETIRAcetam 100 mg/ml Oral Solution PO SCH ×2 (21:42→21:44)
[2021-06-09] MEDS ORDERED: levETIRAcetam 500 mg/5 ml Oral Solution PO SCH (21:45)
[2021-06-10] MEDS: Oxybutynin 5 MG TAB PO SCH ×4 (01:00→17:25)
[2021-06-10 04:15] LABS: #Monocytes 0.9 10x3/uL (0.0-1.1); #Neutrophils 8.2 10x3/uL (1.5-8.4); %Basophils 0.2 % (0.0-2.0); %Eosinophils 0.1 % (0.0-6.0); %Lymphocytes 5.3 % (18.0-47.0); %Monocytes 8.8 % (0.0-10.0); %Neutrophils 84.7 % (40.0-75.0); Hemoglobin 10.4 g/dL (13.5-17.5); Mean Corpuscular HGB CONC 32.2 g/dL (32.0-36.0); Mean Corpuscular Volume 102.5 fl (81.2-95.1); Mean Platelet Volume 10.5 fl (7.4-10.4); Platelet Count 318 10x3/uL (150-450); RBC Distribution Width 13.7 % (11.5-14.5); Red Blood Cell (RBC) Count 3.15 10x6/uL (4.32-5.72); White Blood Cell (WBC) Count 9.7 10x3/uL (3.5-10.5)
[2021-06-10 04:22] LABS: Anion Gap 14 mmol/L (10-20); BUN (Urea Nitrogen) 43 mg/dL (8.4-25.7); Calc. Creatinine Clearance 31 mL/min (70-130); Calcium 8.2 mg/dL (7.8-10.44); Carbon Dioxide 25 mmol/L (23-31); Chloride 105 mmol/L (98-107); Glucose 154 mg/dL (83-110); Potassium 4.3 mmol/L (3.5-5.1); Sodium 140 mmol/L (136-145)
[2021-06-10 04:34] LABS: Actual Bicarbonate (HCO3a) 26.5 mEq/L (22-28); Base Excess (BEa) 1.8 mEq/L (-2.0 to +3.0); Calcium, Ionized (arterial) 1.13 mmol/L (1.12-1.30); Carboxyhemoglobin (COHb) 0.1 gm% (0.0-3.0); Hemoglobin (Hb) 11.8 g/dL (14.0-18.0); O2 Tension (PaO2), arterial 83.7 mmHg (> 60.0); Potassium - ABG Lab 4.2 mmol/L (3.70-5.30); Puncture Site RRA; pH, Arterial 7.42 (7.35-7.45)
[2021-06-10] MEDS: Levothyroxine Sodium 100 MCG TAB PO SCH (05:32)
[2021-06-10] MEDS: Piperacillin/Tazobactam 3.375 GM in Sodium Chloride 0.9% 100 ML IVPB SCH ×3 (05:32→21:24)
[2021-06-10] MEDS: levETIRAcetam 500 mg/5 ml Oral Solution PO SCH ×2 (08:35→21:21)
[2021-06-10] MEDS: BARICITINIB 2 MG TAB PO SCH (08:36)
[2021-06-10] MEDS: Famotidine 20 MG TAB PO SCH (08:36)
[2021-06-10] MEDS: Finasteride 5 MG TAB PO SCH (08:36)
[2021-06-10] MEDS: Atorvastatin Calcium 20 MG TAB PO SCH (08:36)
[2021-06-10] MEDS: Folic Acid 1 MG TAB PO SCH (08:36)
[2021-06-10] MEDS: Tamsulosin HCl 0.4 MG CAP PO SCH (08:36)
[2021-06-10] MEDS: Clopidogrel Bisulfate 75 MG TAB PO SCH (08:36)
[2021-06-10] MEDS: Dexamethasone 20 MG/5 ML VIAL SLOW IVP SCH ×2 (08:37→21:24)
[2021-06-10] MEDS: Sodium Chloride 0.45% 1,000 ML IV SCH ×2 (08:39→21:24)
[2021-06-10] MEDS: Polyethylene Glycol 3350 17 GM Packet PO SCH (09:27)
[2021-06-10] MEDS: Enoxaparin Sodium 40 MG/0.4 ML SYRINGE SC SCH (10:01)
[2021-06-10] MEDS: Propofol 1,000 MG/100 ML VIAL IV PRN (13:00)
[2021-06-10 13:53] LABS: ALT (SGPT) 46 U/L (8-55); AST (SGOT) 63 U/L (5-34); Albumin 2.2 g/dL (3.4-4.8); Alkaline Phosphatase 48 U/L (40-110); Bilirubin, Direct 0.2 mg/dL (0.1-0.3); Bilirubin, Total 0.3 mg/dL (0.2-1.2); Protein, Total 6.2 g/dL (5.8-8.1)
[2021-06-11] MEDS: Oxybutynin 5 MG TAB PO SCH ×6 (00:06→23:46)
[2021-06-11] MEDS: fentaNYL Citrate-0.9 % NaCl/PF 100 ML IVPB SCH (03:00)
[2021-06-11] MEDS: Propofol 1,000 MG/100 ML VIAL IV PRN ×3 (03:01→23:18)
[2021-06-11 04:42] LABS: Actual Bicarbonate (HCO3a) 23.6 mEq/L (22-28); Base Excess (BEa) -0.8 mEq/L (-2.0 to +3.0); CO2 Tension 38.2 mmHg (35.0-45.0); Calcium, Ionized (arterial) 1.12 mmol/L (1.12-1.30); Carboxyhemoglobin (COHb) 0.3 gm% (0.0-3.0); Hemoglobin (Hb) 11.5 g/dL (14.0-18.0); O2 Tension (PaO2), arterial 67.7 mmHg (> 60.0); Potassium - ABG Lab 4.2 mmol/L (3.70-5.30); Puncture Site RRA; pH, Arterial 7.41 (7.35-7.45)
[2021-06-11 04:45] LABS: #Neutrophils 8.4 10x3/uL (1.5-8.4); %Basophils 0.1 % (0.0-2.0); %Eosinophils 0.2 % (0.0-6.0); %Lymphocytes 4.2 % (18.0-47.0); %Monocytes 10.3 % (0.0-10.0); %Neutrophils 84.3 % (40.0-75.0); Hemoglobin 10.6 g/dL (13.5-17.5); Mean Corpuscular Hemoglobin 33.5 pg (27.0-33.0); Mean Corpuscular Volume 101.6 fl (81.2-95.1); Mean Platelet Volume 10.8 fl (7.4-10.4); Platelet Count 307 10x3/uL (150-450); RBC Distribution Width 13.3 % (11.5-14.5); Red Blood Cell (RBC) Count 3.16 10x6/uL (4.32-5.72)
[2021-06-11 04:58] LABS: Anion Gap 13 mmol/L (10-20); BUN (Urea Nitrogen) 44 mg/dL (8.4-25.7); Calc. Creatinine Clearance 35 mL/min (70-130); Calcium 7.7 mg/dL (7.8-10.44); Carbon Dioxide 24 mmol/L (23-31); Chloride 105 mmol/L (98-107); Glucose 139 mg/dL (83-110); Potassium 4.4 mmol/L (3.5-5.1); Sodium 138 mmol/L (136-145)
[2021-06-11 04:59] LABS: ALT (SGPT) 71 U/L (8-55); AST (SGOT) 83 U/L (5-34); Albumin 2.2 g/dL (3.4-4.8); Alkaline Phosphatase 45 U/L (40-110); Bilirubin, Direct 0.2 mg/dL (0.1-0.3); Bilirubin, Total 0.3 mg/dL (0.2-1.2)
[2021-06-11] MEDS: Levothyroxine Sodium 100 MCG TAB PO SCH (05:00)
[2021-06-11] MEDS: Piperacillin/Tazobactam 3.375 GM in Sodium Chloride 0.9% 100 ML IVPB SCH ×3 (05:00→21:33)
[2021-06-11] MEDS: Dexamethasone 20 MG/5 ML VIAL SLOW IVP SCH ×2 (09:05→21:32)
[2021-06-11] MEDS: Polyethylene Glycol 3350 17 GM Packet PO SCH (09:05)
[2021-06-11] MEDS: Enoxaparin Sodium 40 MG/0.4 ML SYRINGE SC SCH (09:05)
[2021-06-11] MEDS: levETIRAcetam 500 mg/5 ml Oral Solution PO SCH ×2 (09:07→21:32)
[2021-06-11] MEDS: Clopidogrel Bisulfate 75 MG TAB PO SCH (09:08)
[2021-06-11] MEDS: Tamsulosin HCl 0.4 MG CAP PO SCH (09:08)
[2021-06-11] MEDS: BARICITINIB 2 MG TAB PO SCH (09:08)
[2021-06-11] MEDS: Finasteride 5 MG TAB PO SCH (09:08)
[2021-06-11] MEDS: Famotidine 20 MG TAB PO SCH (09:09)
[2021-06-11] MEDS: Folic Acid 1 MG TAB PO SCH (09:09)
[2021-06-11] MEDS: Atorvastatin Calcium 20 MG TAB PO SCH (09:09)
[2021-06-11] MEDS: Sodium Chloride 0.45% 1,000 ML IV SCH ×2 (09:10→23:18)
[2021-06-12 04:10] LABS: #Eosinphils 0.1 10x3/uL (0.0-0.5); #Monocytes 1.2 10x3/uL (0.0-1.1); #Neutrophils 9.2 10x3/uL (1.5-8.4); %Basophils 0.3 % (0.0-2.0); %Eosinophils 0.5 % (0.0-6.0); %Lymphocytes 4.7 % (18.0-47.0); %Monocytes 10.8 % (0.0-10.0); %Neutrophils 81.8 % (40.0-75.0); Hemoglobin 11.6 g/dL (13.5-17.5); Mean Corpuscular HGB CONC 33.7 g/dL (32.0-36.0); Mean Corpuscular Hemoglobin 33.8 pg (27.0-33.0); Mean Corpuscular Volume 100.3 fl (81.2-95.1); Mean Platelet Volume 10.6 fl (7.4-10.4); Platelet Count 342 10x3/uL (150-450); RBC Distribution Width 13.5 % (11.5-14.5); Red Blood Cell (RBC) Count 3.43 10x6/uL (4.32-5.72); White Blood Cell (WBC) Count 11.3 10x3/uL (3.5-10.5)
[2021-06-12 04:19] LABS: ALT (SGPT) 81 U/L (8-55); AST (SGOT) 65 U/L (5-34); Albumin 2.3 g/dL (3.4-4.8); Alkaline Phosphatase 53 U/L (40-110); Anion Gap 13 mmol/L (10-20); BUN (Urea Nitrogen) 44 mg/dL (8.4-25.7); Bilirubin, Direct 0.2 mg/dL (0.1-0.3); Bilirubin, Total 0.3 mg/dL (0.2-1.2); Calc. Creatinine Clearance 38 mL/min (70-130); Calcium 7.7 mg/dL (7.8-10.44); Carbon Dioxide 23 mmol/L (23-31); Chloride 106 mmol/L (98-107); Glucose 153 mg/dL (83-110); Potassium 4.2 mmol/L (3.5-5.1); Protein, Total 6.2 g/dL (5.8-8.1); Sodium 138 mmol/L (136-145)
[2021-06-12] MEDS: Piperacillin/Tazobactam 3.375 GM in Sodium Chloride 0.9% 100 ML IVPB SCH ×3 (06:03→20:05)
[2021-06-12] MEDS: Levothyroxine Sodium 100 MCG TAB PO SCH (06:03)
[2021-06-12] MEDS: Oxybutynin 5 MG TAB PO SCH ×3 (06:36→17:21)
[2021-06-12] MEDS: Folic Acid 1 MG TAB PO SCH (08:02)
[2021-06-12] MEDS: BARICITINIB 2 MG TAB PO SCH (08:02)
[2021-06-12] MEDS: Famotidine 20 MG TAB PO SCH (08:02)
[2021-06-12] MEDS: levETIRAcetam 500 mg/5 ml Oral Solution PO SCH ×2 (08:02→20:01)
[2021-06-12] MEDS: Atorvastatin Calcium 20 MG TAB PO SCH (08:03)
[2021-06-12] MEDS: Dexamethasone 20 MG/5 ML VIAL SLOW IVP SCH ×2 (08:03→20:02)
[2021-06-12] MEDS: Clopidogrel Bisulfate 75 MG TAB PO SCH (08:03)
[2021-06-12] MEDS: Finasteride 5 MG TAB PO SCH (08:04)
[2021-06-12] MEDS: Enoxaparin Sodium 40 MG/0.4 ML SYRINGE SC SCH (08:04)
[2021-06-12] MEDS: Tamsulosin HCl 0.4 MG CAP PO SCH (08:05)
[2021-06-12] MEDS: Polyethylene Glycol 3350 17 GM Packet PO SCH (08:08)
[2021-06-12 11:12] LABS: Actual Bicarbonate (HCO3a) 24.9 mEq/L (22-28); Base Excess (BEa) 0.3 mEq/L (-2.0 to +3.0); Calcium, Ionized (arterial) 1.09 mmol/L (1.12-1.30); Carboxyhemoglobin (COHb) 0.1 gm% (0.0-3.0); Hemoglobin (Hb) 12.4 g/dL (14.0-18.0); O2 Tension (PaO2), arterial 63.2 mmHg (> 60.0); Puncture Site RRA; pH, Arterial 7.41 (7.35-7.45)
[2021-06-12] MEDS: Sodium Chloride 0.45% 1,000 ML IV SCH (16:50)
[2021-06-12] MEDS: Propofol 1,000 MG/100 ML VIAL IV PRN (22:18)
[2021-06-13] MEDS: Oxybutynin 5 MG TAB PO SCH ×5 (01:00→21:54)
[2021-06-13 03:53] LABS: #Eosinphils 0.1 10x3/uL (0.0-0.5); #Monocytes 1.1 10x3/uL (0.0-1.1); #Neutrophils 10.7 10x3/uL (1.5-8.4); %Basophils 0.3 % (0.0-2.0); %Eosinophils 0.9 % (0.0-6.0); %Neutrophils 84.2 % (40.0-75.0); Hemoglobin 10.6 g/dL (13.5-17.5); Mean Corpuscular HGB CONC 32.5 g/dL (32.0-36.0); Mean Corpuscular Hemoglobin 33.2 pg (27.0-33.0); Mean Corpuscular Volume 102.2 fl (81.2-95.1); Mean Platelet Volume 10.9 fl (7.4-10.4); Platelet Count 327 10x3/uL (150-450); RBC Distribution Width 13.7 % (11.5-14.5); Red Blood Cell (RBC) Count 3.19 10x6/uL (4.32-5.72); White Blood Cell (WBC) Count 12.6 10x3/uL (3.5-10.5)
[2021-06-13 03:57] LABS: Anion Gap 15 mmol/L (10-20); BUN (Urea Nitrogen) 52 mg/dL (8.4-25.7); Calc. Creatinine Clearance 36 mL/min (70-130); Calcium 7.1 mg/dL (7.8-10.44); Carbon Dioxide 22 mmol/L (23-31); Chloride 106 mmol/L (98-107); Glucose 146 mg/dL (83-110); Potassium 4.6 mmol/L (3.5-5.1); Sodium 138 mmol/L (136-145)
[2021-06-13 05:29] LABS: Actual Bicarbonate (HCO3a) 24.3 mEq/L (22-28); Base Excess (BEa) -0.6 mEq/L (-2.0 to +3.0); CO2 Tension 40.8 mmHg (35.0-45.0); Calcium, Ionized (arterial) 1.12 mmol/L (1.12-1.30); Carboxyhemoglobin (COHb) 0.6 gm% (0.0-3.0); Hemoglobin (Hb) 12.4 g/dL (14.0-18.0); O2 Tension (PaO2), arterial 54.6 mmHg (> 60.0); Potassium - ABG Lab 4.3 mmol/L (3.70-5.30); Puncture Site RRA; pH, Arterial 7.39 (7.35-7.45)
[2021-06-13] MEDS: fentaNYL Citrate-0.9 % NaCl/PF 100 ML IVPB SCH (06:18)
[2021-06-13] MEDS: Levothyroxine Sodium 100 MCG TAB PO SCH (06:22)
[2021-06-13] MEDS: Piperacillin/Tazobactam 3.375 GM in Sodium Chloride 0.9% 100 ML IVPB SCH ×3 (06:22→21:49)
[2021-06-13] MEDS: Atorvastatin Calcium 20 MG TAB PO SCH (09:20)
[2021-06-13] MEDS: Folic Acid 1 MG TAB PO SCH (09:20)
[2021-06-13] MEDS: Clopidogrel Bisulfate 75 MG TAB PO SCH (09:20)
[2021-06-13] MEDS: Famotidine 20 MG TAB PO SCH (09:20)
[2021-06-13] MEDS: levETIRAcetam 500 mg/5 ml Oral Solution PO SCH ×2 (09:20→21:54)
[2021-06-13] MEDS: Tamsulosin HCl 0.4 MG CAP PO SCH (09:20)
[2021-06-13] MEDS: BARICITINIB 2 MG TAB PO SCH (09:20)
[2021-06-13] MEDS: Polyethylene Glycol 3350 17 GM Packet PO SCH (09:21)
[2021-06-13] MEDS: Enoxaparin Sodium 40 MG/0.4 ML SYRINGE SC SCH (09:21)
[2021-06-13] MEDS: Finasteride 5 MG TAB PO SCH (09:21)
[2021-06-13] MEDS: Dexamethasone 20 MG/5 ML VIAL SLOW IVP SCH ×2 (09:21→21:53)
[2021-06-13] MEDS: Norepinephrine 8 MG/0.9% NS 250 ML IVPB SCH (13:42)
[2021-06-14 05:02] LABS: #Basophils 0.1 10x3/uL (0.0-0.2); #Eosinphils 0.1 10x3/uL (0.0-0.5); #Monocytes 1.3 10x3/uL (0.0-1.1); #Neutrophils 15.2 10x3/uL (1.5-8.4); %Basophils 0.3 % (0.0-2.0); %Eosinophils 0.6 % (0.0-6.0); %Lymphocytes 3.1 % (18.0-47.0); %Monocytes 7.3 % (0.0-10.0); %Neutrophils 86.7 % (40.0-75.0); Hemoglobin 11.4 g/dL (13.5-17.5); Mean Corpuscular HGB CONC 33.2 g/dL (32.0-36.0); Mean Corpuscular Hemoglobin 33.8 pg (27.0-33.0); Mean Corpuscular Volume 101.8 fl (81.2-95.1); Platelet Count 388 10x3/uL (150-450); RBC Distribution Width 14.1 % (11.5-14.5); Red Blood Cell (RBC) Count 3.37 10x6/uL (4.32-5.72); White Blood Cell (WBC) Count 17.6 10x3/uL (3.5-10.5)
[2021-06-14 05:19] LABS: ALT (SGPT) 49 U/L (8-55); AST (SGOT) 31 U/L (5-34); Albumin 2.3 g/dL (3.4-4.8); Alkaline Phosphatase 57 U/L (40-110); Anion Gap 15 mmol/L (10-20); BUN (Urea Nitrogen) 71 mg/dL (8.4-25.7); Bilirubin, Direct 0.2 mg/dL (0.1-0.3); Bilirubin, Total 0.3 mg/dL (0.2-1.2); Calc. Creatinine Clearance 31 mL/min (70-130); Calcium 7.4 mg/dL (7.8-10.44); Carbon Dioxide 23 mmol/L (23-31); Chloride 106 mmol/L (98-107); Glucose 169 mg/dL (83-110); Potassium 4.6 mmol/L (3.5-5.1); Protein, Total 5.6 g/dL (5.8-8.1); Sodium 139 mmol/L (136-145)
[2021-06-14] MEDS: Levothyroxine Sodium 100 MCG TAB PO SCH (05:35)
[2021-06-14] MEDS: Piperacillin/Tazobactam 3.375 GM in Sodium Chloride 0.9% 100 ML IVPB SCH ×3 (05:35→21:12)
[2021-06-14] MEDS: Oxybutynin 5 MG TAB PO SCH ×3 (05:48→17:46)
[2021-06-14 08:51] LABS: Actual Bicarbonate (HCO3a) 23.7 mEq/L (22-28); Base Excess (BEa) -0.9 mEq/L (-2.0 to +3.0); CO2 Tension 38.7 mmHg (35.0-45.0); Calcium, Ionized (arterial) 1.13 mmol/L (1.12-1.30); Carboxyhemoglobin (COHb) 0.6 gm% (0.0-3.0); Hemoglobin (Hb) 11.8 g/dL (14.0-18.0); O2 Tension (PaO2), arterial 61.9 mmHg (> 60.0); Potassium - ABG Lab 4.6 mmol/L (3.70-5.30); Puncture Site RRA
[2021-06-14] MEDS: Polyethylene Glycol 3350 17 GM Packet PO SCH (08:54)
[2021-06-14] MEDS: Finasteride 5 MG TAB PO SCH (08:54)
[2021-06-14 08:57] LABS: ALV-art Gradient 246.225 mmHg (0-20)
[2021-06-14] MEDS: Clopidogrel Bisulfate 75 MG TAB PO SCH (09:39)
[2021-06-14] MEDS: Atorvastatin Calcium 20 MG TAB PO SCH (09:39)
[2021-06-14] MEDS: BARICITINIB 2 MG TAB PO SCH (09:39)
[2021-06-14] MEDS: Dexamethasone 20 MG/5 ML VIAL SLOW IVP SCH ×2 (09:39→21:12)
[2021-06-14] MEDS: Enoxaparin Sodium 40 MG/0.4 ML SYRINGE SC SCH (09:40)
[2021-06-14] MEDS: Tamsulosin HCl 0.4 MG CAP PO SCH (09:40)
[2021-06-14] MEDS: levETIRAcetam 500 mg/5 ml Oral Solution PO SCH ×2 (09:40→21:12)
[2021-06-14] MEDS: Folic Acid 1 MG TAB PO SCH (09:40)
[2021-06-14] MEDS: Famotidine 20 MG TAB PO SCH (09:42)
[2021-06-14] MEDS: fentaNYL Citrate-0.9 % NaCl/PF 100 ML IVPB SCH (12:44)
[2021-06-14] MEDS: Sodium Chloride 0.9% 1,000 ML IV SCH (17:47)
[2021-06-15] MEDS: Oxybutynin 5 MG TAB PO SCH ×5 (00:05→23:02)
[2021-06-15 03:30] LABS: ALV-art Gradient 237.525 mmHg (0-20); Actual Bicarbonate (HCO3a) 24.1 mEq/L (22-28); Base Excess (BEa) -0.7 mEq/L (-2.0 to +3.0); CO2 Tension 40.7 mmHg (35.0-45.0); Calcium, Ionized (arterial) 1.15 mmol/L (1.12-1.30); Carboxyhemoglobin (COHb) 0.4 gm% (0.0-3.0); Hemoglobin (Hb) 12.3 g/dL (14.0-18.0); O2 Tension (PaO2), arterial 68.1 mmHg (> 60.0); Potassium - ABG Lab 4.8 mmol/L (3.70-5.30); Puncture Site RRA; pH, Arterial 7.39 (7.35-7.45)
[2021-06-15 04:48] LABS: #Eosinphils 0.4 10x3/uL (0.0-0.5); #Monocytes 1.4 10x3/uL (0.0-1.1); #Neutrophils 12.5 10x3/uL (1.5-8.4); %Basophils 0.3 % (0.0-2.0); %Eosinophils 2.7 % (0.0-6.0); %Lymphocytes 3.4 % (18.0-47.0); %Monocytes 9.2 % (0.0-10.0); %Neutrophils 83.3 % (40.0-75.0); Hemoglobin 9.8 g/dL (13.5-17.5); Mean Corpuscular HGB CONC 31.9 g/dL (32.0-36.0); Mean Corpuscular Hemoglobin 33.1 pg (27.0-33.0); Mean Corpuscular Volume 103.7 fl (81.2-95.1); Platelet Count 344 10x3/uL (150-450); RBC Distribution Width 14.2 % (11.5-14.5); Red Blood Cell (RBC) Count 2.96 10x6/uL (4.32-5.72); White Blood Cell (WBC) Count 14.9 10x3/uL (3.5-10.5)
[2021-06-15 04:56] LABS: Anion Gap 13 mmol/L (10-20); BUN (Urea Nitrogen) 72 mg/dL (8.4-25.7); Calc. Creatinine Clearance 33 mL/min (70-130); Carbon Dioxide 24 mmol/L (23-31); Chloride 108 mmol/L (98-107); Glucose 149 mg/dL (83-110); Potassium 4.9 mmol/L (3.5-5.1); Sodium 140 mmol/L (136-145)
[2021-06-15] MEDS: Piperacillin/Tazobactam 3.375 GM in Sodium Chloride 0.9% 100 ML IVPB SCH ×3 (05:47→21:40)
[2021-06-15] MEDS: Levothyroxine Sodium 100 MCG TAB PO SCH (05:47)
[2021-06-15] MEDS: Enoxaparin Sodium 40 MG/0.4 ML SYRINGE SC SCH (08:00)
[2021-06-15] MEDS: levETIRAcetam 500 mg/5 ml Oral Solution PO SCH ×2 (08:00→20:18)
[2021-06-15] MEDS: Polyethylene Glycol 3350 17 GM Packet PO SCH (08:01)
[2021-06-15] MEDS: Famotidine 20 MG TAB PO SCH (08:01)
[2021-06-15] MEDS: Clopidogrel Bisulfate 75 MG TAB PO SCH (08:01)
[2021-06-15] MEDS: Dexamethasone 20 MG/5 ML VIAL SLOW IVP SCH ×2 (08:01→20:18)
[2021-06-15] MEDS: Finasteride 5 MG TAB PO SCH (08:02)
[2021-06-15] MEDS: Folic Acid 1 MG TAB PO SCH (08:02)
[2021-06-15] MEDS: BARICITINIB 2 MG TAB PO SCH (08:02)
[2021-06-15] MEDS: Atorvastatin Calcium 20 MG TAB PO SCH (08:02)
[2021-06-15] MEDS: Tamsulosin HCl 0.4 MG CAP PO SCH (08:02)
[2021-06-15] MEDS: Dexmedetomidine In 0.9 % NaCl 100 ML IVPB SCH ×2 (08:21→16:28)
[2021-06-15] MEDS: fentaNYL Citrate-0.9 % NaCl/PF 100 ML IVPB SCH (10:42)
[2021-06-15] MEDS ORDERED: Sodium Chloride 0.9% 1,000 ML IV SCH (11:30)
[2021-06-15 12:23] LABS: #Eosinphils 0.3 10x3/uL (0.0-0.5); #Monocytes 0.7 10x3/uL (0.0-1.1); %Basophils 0.2 % (0.0-2.0); %Eosinophils 2.5 % (0.0-6.0); %Lymphocytes 2.8 % (18.0-47.0); %Monocytes 5.7 % (0.0-10.0); %Neutrophils 87.4 % (40.0-75.0); Hemoglobin 9.2 g/dL (13.5-17.5); Mean Corpuscular HGB CONC 32.9 g/dL (32.0-36.0); Mean Corpuscular Hemoglobin 33.6 pg (27.0-33.0); Mean Corpuscular Volume 102.2 fl (81.2-95.1); Mean Platelet Volume 10.8 fl (7.4-10.4); Platelet Count 321 10x3/uL (150-450); RBC Distribution Width 14.4 % (11.5-14.5); Red Blood Cell (RBC) Count 2.74 10x6/uL (4.32-5.72); White Blood Cell (WBC) Count 12.6 10x3/uL (3.5-10.5)
[2021-06-15 12:45] LABS: Anion Gap 13 mmol/L (10-20); BUN (Urea Nitrogen) 71 mg/dL (8.4-25.7); Calc. Creatinine Clearance 35 mL/min (70-130); Calcium 7.7 mg/dL (7.8-10.44); Carbon Dioxide 23 mmol/L (23-31); Chloride 108 mmol/L (98-107); Glucose 159 mg/dL (83-110); Potassium 4.9 mmol/L (3.5-5.1); Sodium 139 mmol/L (136-145)
[2021-06-15] MEDS: Sodium Chloride 0.9% 1,000 ML IV SCH (14:20)
[2021-06-16 03:31] LABS: ALV-art Gradient 256.525 mmHg (0-20); Actual Bicarbonate (HCO3a) 23.4 mEq/L (22-28); Base Excess (BEa) -0.7 mEq/L (-2.0 to +3.0); CO2 Tension 36.7 mmHg (35.0-45.0); Calcium, Ionized (arterial) 1.16 mmol/L (1.12-1.30); Carboxyhemoglobin (COHb) 0.4 gm% (0.0-3.0); Hemoglobin (Hb) 10.3 g/dL (14.0-18.0); O2 Tension (PaO2), arterial 54.1 mmHg (> 60.0); Potassium - ABG Lab 4.8 mmol/L (3.70-5.30); Puncture Site RRA; pH, Arterial 7.42 (7.35-7.45)
[2021-06-16 05:03] LABS: #Eosinphils 0.3 10x3/uL (0.0-0.5); #Monocytes 1.1 10x3/uL (0.0-1.1); #Neutrophils 8.9 10x3/uL (1.5-8.4); %Basophils 0.2 % (0.0-2.0); %Eosinophils 2.9 % (0.0-6.0); %Monocytes 9.7 % (0.0-10.0); %Neutrophils 82.2 % (40.0-75.0); Mean Corpuscular HGB CONC 31.9 g/dL (32.0-36.0); Mean Corpuscular Hemoglobin 33.1 pg (27.0-33.0); Mean Corpuscular Volume 103.7 fl (81.2-95.1); Mean Platelet Volume 10.9 fl (7.4-10.4); Platelet Count 315 10x3/uL (150-450); RBC Distribution Width 14.6 % (11.5-14.5); Red Blood Cell (RBC) Count 2.72 10x6/uL (4.32-5.72); White Blood Cell (WBC) Count 10.8 10x3/uL (3.5-10.5)
[2021-06-16 05:18] LABS: Anion Gap 12 mmol/L (10-20); BUN (Urea Nitrogen) 67 mg/dL (8.4-25.7); Calc. Creatinine Clearance 39 mL/min (70-130); Calcium 7.9 mg/dL (7.8-10.44); Carbon Dioxide 24 mmol/L (23-31); Chloride 112 mmol/L (98-107); Glucose 142 mg/dL (83-110); Potassium 4.8 mmol/L (3.5-5.1); Sodium 143 mmol/L (136-145)
[2021-06-16] MEDS: Dexmedetomidine In 0.9 % NaCl 100 ML IVPB SCH (05:25)
[2021-06-16] MEDS: Levothyroxine Sodium 100 MCG TAB PO SCH (05:26)
[2021-06-16] MEDS: Piperacillin/Tazobactam 3.375 GM in Sodium Chloride 0.9% 100 ML IVPB SCH ×3 (05:27→21:04)
[2021-06-16] MEDS: Oxybutynin 5 MG TAB PO SCH ×4 (05:32→23:35)
[2021-06-16] MEDS: Polyethylene Glycol 3350 17 GM Packet PO SCH (09:08)
[2021-06-16] MEDS: Folic Acid 1 MG TAB PO SCH (09:09)
[2021-06-16] MEDS: Clopidogrel Bisulfate 75 MG TAB PO SCH (09:09)
[2021-06-16] MEDS: Atorvastatin Calcium 20 MG TAB PO SCH (09:09)
[2021-06-16] MEDS: Tamsulosin HCl 0.4 MG CAP PO SCH (09:09)
[2021-06-16] MEDS: levETIRAcetam 500 mg/5 ml Oral Solution PO SCH ×2 (09:09→21:03)
[2021-06-16] MEDS: Finasteride 5 MG TAB PO SCH (09:09)
[2021-06-16] MEDS: Famotidine 20 MG TAB PO SCH (09:09)
[2021-06-16] MEDS: Enoxaparin Sodium 40 MG/0.4 ML SYRINGE SC SCH (09:10)
[2021-06-16] MEDS: Dexamethasone 20 MG/5 ML VIAL SLOW IVP SCH ×2 (09:10→21:03)
[2021-06-16] MEDS: BARICITINIB 2 MG TAB PO SCH (09:10)
[2021-06-16] MEDS ORDERED: Albuterol 200 PUFF (6.7GM INHALER) INH SCH (13:00)
[2021-06-17] MEDS: Dexmedetomidine In 0.9 % NaCl 100 ML IVPB SCH ×4 (00:41→21:44)
[2021-06-17 03:18] LABS: ALV-art Gradient 324.525 mmHg (0-20); Actual Bicarbonate (HCO3a) 22.2 mEq/L (22-28); CO2 Tension 35.9 mmHg (35.0-45.0); Calcium, Ionized (arterial) 1.17 mmol/L (1.12-1.30); Carboxyhemoglobin (COHb) 0.2 gm% (0.0-3.0); O2 Tension (PaO2), arterial 58.4 mmHg (> 60.0); Potassium - ABG Lab 4.8 mmol/L (3.70-5.30); Puncture Site RRA; pH, Arterial 7.41 (7.35-7.45)
[2021-06-17 04:10] LABS: #Eosinphils 0.3 10x3/uL (0.0-0.5); #Neutrophils 9.5 10x3/uL (1.5-8.4); %Basophils 0.3 % (0.0-2.0); %Eosinophils 2.6 % (0.0-6.0); %Lymphocytes 3.3 % (18.0-47.0); %Neutrophils 84.1 % (40.0-75.0); Hemoglobin 9.4 g/dL (13.5-17.5); Mean Corpuscular HGB CONC 32.9 g/dL (32.0-36.0); Mean Corpuscular Hemoglobin 34.1 pg (27.0-33.0); Mean Corpuscular Volume 103.6 fl (81.2-95.1); Platelet Count 332 10x3/uL (150-450); RBC Distribution Width 14.8 % (11.5-14.5); Red Blood Cell (RBC) Count 2.76 10x6/uL (4.32-5.72); White Blood Cell (WBC) Count 11.2 10x3/uL (3.5-10.5)
[2021-06-17 04:19] LABS: ALT (SGPT) 50 U/L (8-55); AST (SGOT) 37 U/L (5-34); Albumin 2.3 g/dL (3.4-4.8); Alkaline Phosphatase 86 U/L (40-110); Anion Gap 13 mmol/L (10-20); BUN (Urea Nitrogen) 65 mg/dL (8.4-25.7); Bilirubin, Direct 0.1 mg/dL (0.1-0.3); Bilirubin, Total 0.2 mg/dL (0.2-1.2); Calc. Creatinine Clearance 40 mL/min (70-130); Calcium 8.1 mg/dL (7.8-10.44); Carbon Dioxide 23 mmol/L (23-31); Chloride 112 mmol/L (98-107); Glucose 164 mg/dL (83-110); Protein, Total 5.9 g/dL (5.8-8.1); Sodium 143 mmol/L (136-145)
[2021-06-17] MEDS: fentaNYL Citrate-0.9 % NaCl/PF 100 ML IVPB SCH (05:39)
[2021-06-17] MEDS: Sodium Chloride 0.9% 1,000 ML IV SCH ×2 (05:39)
[2021-06-17] MEDS: Oxybutynin 5 MG TAB PO SCH ×3 (05:39→17:55)
[2021-06-17] MEDS: Levothyroxine Sodium 100 MCG TAB PO SCH (05:39)
[2021-06-17] MEDS ORDERED: Furosemide 40 MG/4 ML VIAL SLOW IVP SCH (08:00)
[2021-06-17] MEDS ORDERED: fentaNYL 75 mcg/hour Patch TD SCH (08:00)
[2021-06-17] MEDS: Tamsulosin HCl 0.4 MG CAP PO SCH (08:54)
[2021-06-17] MEDS: Atorvastatin Calcium 20 MG TAB PO SCH (08:54)
[2021-06-17] MEDS: Finasteride 5 MG TAB PO SCH (08:54)
[2021-06-17] MEDS: Famotidine 20 MG TAB PO SCH (08:54)
[2021-06-17] MEDS: Folic Acid 1 MG TAB PO SCH (08:54)
[2021-06-17] MEDS: Enoxaparin Sodium 40 MG/0.4 ML SYRINGE SC SCH (08:55)
[2021-06-17] MEDS: Clopidogrel Bisulfate 75 MG TAB PO SCH (08:55)
[2021-06-17] MEDS: levETIRAcetam 500 mg/5 ml Oral Solution PO SCH ×2 (08:58→21:53)
[2021-06-17] MEDS: Dexamethasone 20 MG/5 ML VIAL SLOW IVP SCH ×2 (08:59→21:35)
[2021-06-17] MEDS: Polyethylene Glycol 3350 17 GM Packet PO SCH (09:00)
[2021-06-17] MEDS: BARICITINIB 2 MG TAB PO SCH (09:01)
[2021-06-17] MEDS: Propofol 1,000 MG/100 ML VIAL IV PRN (23:54)
[2021-06-17] MEDS: Norepinephrine 8 MG/0.9% NS 250 ML IVPB SCH (23:54)
[2021-06-18 03:29] LABS: ALV-art Gradient 593.175 mmHg (0-20); Actual Bicarbonate (HCO3a) 23.4 mEq/L (22-28); Base Excess (BEa) -1.7 mEq/L (-2.0 to +3.0); CO2 Tension 40.9 mmHg (35.0-45.0); Calcium, Ionized (arterial) 1.17 mmol/L (1.12-1.30); Carboxyhemoglobin (COHb) 0.3 gm% (0.0-3.0); Hemoglobin (Hb) 9.3 g/dL (14.0-18.0); O2 Tension (PaO2), arterial 68.7 mmHg (> 60.0); Puncture Site LRA; pH, Arterial 7.38 (7.35-7.45)
[2021-06-18 05:06] LABS: Anion Gap 13 mmol/L (10-20); BUN (Urea Nitrogen) 69 mg/dL (8.4-25.7); Calc. Creatinine Clearance 47 mL/min (70-130); Calcium 8.1 mg/dL (7.8-10.44); Carbon Dioxide 24 mmol/L (23-31); Chloride 112 mmol/L (98-107); Glucose 138 mg/dL (83-110); Potassium 5.1 mmol/L (3.5-5.1); Sodium 144 mmol/L (136-145)
[2021-06-18 05:07] LABS: #Eosinphils 0.3 10x3/uL (0.0-0.5); #Monocytes 1.5 10x3/uL (0.0-1.1); #Neutrophils 12.9 10x3/uL (1.5-8.4); %Basophils 0.3 % (0.0-2.0); %Eosinophils 1.6 % (0.0-6.0); %Lymphocytes 3.8 % (18.0-47.0); %Monocytes 9.8 % (0.0-10.0); %Neutrophils 83.6 % (40.0-75.0); Hemoglobin 8.9 g/dL (13.5-17.5); Mean Corpuscular HGB CONC 33.6 g/dL (32.0-36.0); Mean Corpuscular Hemoglobin 35.2 pg (27.0-33.0); Mean Corpuscular Volume 104.7 fl (81.2-95.1); Mean Platelet Volume 10.8 fl (7.4-10.4); Platelet Count 349 10x3/uL (150-450); RBC Distribution Width 15.4 % (11.5-14.5); Red Blood Cell (RBC) Count 2.53 10x6/uL (4.32-5.72); White Blood Cell (WBC) Count 15.4 10x3/uL (3.5-10.5)
[2021-06-18] MEDS: Oxybutynin 5 MG TAB PO SCH ×5 (05:45→23:56)
[2021-06-18] MEDS: Levothyroxine Sodium 100 MCG TAB PO SCH (07:11)
[2021-06-18] MEDS: Furosemide 100 MG/10 ML VIAL SLOW IVP SCH ×2 (09:34→17:47)
[2021-06-18] MEDS: Polyethylene Glycol 3350 17 GM Packet PO SCH (09:34)
[2021-06-18] MEDS: Dexamethasone 20 MG/5 ML VIAL SLOW IVP SCH ×2 (09:34→21:57)
[2021-06-18] MEDS: Folic Acid 1 MG TAB PO SCH (09:35)
[2021-06-18] MEDS: Famotidine 20 MG TAB PO SCH (09:35)
[2021-06-18] MEDS: Atorvastatin Calcium 20 MG TAB PO SCH (09:35)
[2021-06-18] MEDS: Tamsulosin HCl 0.4 MG CAP PO SCH (09:35)
[2021-06-18] MEDS: Finasteride 5 MG TAB PO SCH (09:35)
[2021-06-18] MEDS: BARICITINIB 2 MG TAB PO SCH (09:35)
[2021-06-18] MEDS: Clopidogrel Bisulfate 75 MG TAB PO SCH (09:35)
[2021-06-18] MEDS: Enoxaparin Sodium 40 MG/0.4 ML SYRINGE SC SCH (09:35)
[2021-06-18] MEDS: levETIRAcetam 500 mg/5 ml Oral Solution PO SCH ×2 (09:40→21:56)
[2021-06-18 10:57] LABS: Actual Bicarbonate (HCO3a) 23.7 mEq/L (22-28); Base Excess (BEa) -2.3 mEq/L (-2.0 to +3.0); CO2 Tension 45.8 mmHg (35.0-45.0); Calcium, Ionized (arterial) 1.16 mmol/L (1.12-1.30); Hemoglobin (Hb) 10.3 g/dL (14.0-18.0); O2 Tension (PaO2), arterial 90.9 mmHg (> 60.0); Potassium - ABG Lab 4.7 mmol/L (3.70-5.30); Puncture Site RRA; pH, Arterial 7.33 (7.35-7.45)
[2021-06-18] MEDS: Propofol 1,000 MG/100 ML VIAL IV PRN (14:06)
[2021-06-19] MEDS: Propofol 1,000 MG/100 ML VIAL IV PRN ×2 (02:48→14:36)
[2021-06-19 05:25] LABS: #Eosinphils 0.3 10x3/uL (0.0-0.5); #Monocytes 1.2 10x3/uL (0.0-1.1); #Neutrophils 11.3 10x3/uL (1.5-8.4); %Basophils 0.2 % (0.0-2.0); %Eosinophils 1.9 % (0.0-6.0); %Lymphocytes 4.4 % (18.0-47.0); %Monocytes 8.8 % (0.0-10.0); Hemoglobin 8.7 g/dL (13.5-17.5); Mean Corpuscular HGB CONC 32.8 g/dL (32.0-36.0); Mean Corpuscular Hemoglobin 35.4 pg (27.0-33.0); Mean Corpuscular Volume 107.7 fl (81.2-95.1); Mean Platelet Volume 10.8 fl (7.4-10.4); Platelet Count 329 10x3/uL (150-450); RBC Distribution Width 15.9 % (11.5-14.5); Red Blood Cell (RBC) Count 2.46 10x6/uL (4.32-5.72); White Blood Cell (WBC) Count 13.5 10x3/uL (3.5-10.5)
[2021-06-19] MEDS: Oxybutynin 5 MG TAB PO SCH ×3 (05:38→17:49)
[2021-06-19] MEDS: Levothyroxine Sodium 100 MCG TAB PO SCH (05:38)
[2021-06-19 05:39] LABS: Anion Gap 15 mmol/L (10-20); BUN (Urea Nitrogen) 79 mg/dL (8.4-25.7); Calc. Creatinine Clearance 43 mL/min (70-130); Calcium 8.4 mg/dL (7.8-10.44); Carbon Dioxide 24 mmol/L (23-31); Chloride 111 mmol/L (98-107); Glucose 127 mg/dL (83-110); Potassium 5.4 mmol/L (3.5-5.1); Sodium 145 mmol/L (136-145)
[2021-06-19 06:33] LABS: Platelet Morphology Comment Appears Adequate
[2021-06-19 06:34] LABS: Ovalocytes SLIGHT = 2-5 cells (100X) (0-1/hpf); Polychromasia SLIGHT = 2-3 cells (100X) (0-2/hpf)
[2021-06-19] MEDS: Norepinephrine 8 MG/0.9% NS 250 ML IVPB SCH (07:29)
[2021-06-19] MEDS: fentaNYL Citrate-0.9 % NaCl/PF 100 ML IVPB SCH (07:30)
[2021-06-19] MEDS: Enoxaparin Sodium 40 MG/0.4 ML SYRINGE SC SCH (08:22)
[2021-06-19] MEDS: Polyethylene Glycol 3350 17 GM Packet PO SCH (08:22)
[2021-06-19] MEDS: Clopidogrel Bisulfate 75 MG TAB PO SCH (08:23)
[2021-06-19] MEDS: BARICITINIB 2 MG TAB PO SCH (08:23)
[2021-06-19] MEDS: Famotidine 20 MG TAB PO SCH (08:23)
[2021-06-19] MEDS: Dexamethasone 20 MG/5 ML VIAL SLOW IVP SCH ×2 (08:23→21:50)
[2021-06-19] MEDS: Finasteride 5 MG TAB PO SCH (08:24)
[2021-06-19] MEDS: Atorvastatin Calcium 20 MG TAB PO SCH (08:24)
[2021-06-19] MEDS: Folic Acid 1 MG TAB PO SCH (08:24)
[2021-06-19] MEDS: Tamsulosin HCl 0.4 MG CAP PO SCH (08:24)
[2021-06-19] MEDS: levETIRAcetam 500 mg/5 ml Oral Solution PO SCH ×2 (08:35→21:54)
[2021-06-19 17:11] LABS: Anion Gap 14 mmol/L (10-20); BUN (Urea Nitrogen) 80 mg/dL (8.4-25.7); Calc. Creatinine Clearance 43 mL/min (70-130); Calcium 8.5 mg/dL (7.8-10.44); Carbon Dioxide 26 mmol/L (23-31); Chloride 111 mmol/L (98-107); Glucose 147 mg/dL (83-110); Sodium 145 mmol/L (136-145)
[2021-06-19] MEDS: Furosemide 40 MG/4 ML VIAL SLOW IVP SCH (17:51)
[2021-06-19] MEDS ORDERED: Furosemide 40 MG/4 ML VIAL SLOW IVP SCH (18:00)
[2021-06-19] MEDS ORDERED: Calcium Gluconate 4.6 MEQ in Sodium Chloride 0.9% 100 ML IVPB SCH (18:00)
[2021-06-19] MEDS ORDERED: Dextrose 50% Abboject 50 ML SYRINGE SLOW IVP PRN (21:01)
[2021-06-19] MEDS ORDERED: Insulin Regular 300 UNITS/3 ML VIAL IVP SCH (21:15)
[2021-06-19] MEDS ORDERED: Atropine Sulfate 1 mg/10 ml Syringe ONE (22:23)
[2021-06-19] MEDS ORDERED: Atropine Sulfate 1 mg/10 ml Syringe IVP SCH (22:30)
[2021-06-20] MEDS: Oxybutynin 5 MG TAB PO SCH ×5 (00:23→23:24)
[2021-06-20 01:37] LABS: Potassium 5.3 mmol/L (3.5-5.1)
[2021-06-20] MEDS: Propofol 1,000 MG/100 ML VIAL IV PRN ×3 (04:01→23:21)
[2021-06-20 04:07] LABS: Anion Gap 15 mmol/L (10-20); BUN (Urea Nitrogen) 84 mg/dL (8.4-25.7); Calc. Creatinine Clearance 36 mL/min (70-130); Calcium 8.7 mg/dL (7.8-10.44); Carbon Dioxide 24 mmol/L (23-31); Chloride 110 mmol/L (98-107); Glucose 119 mg/dL (83-110); Sodium 144 mmol/L (136-145)
[2021-06-20 04:09] LABS: ALT (SGPT) 61 U/L (8-55); AST (SGOT) 56 U/L (5-34); Albumin 2.8 g/dL (3.4-4.8); Alkaline Phosphatase 90 U/L (40-110); Bilirubin, Direct 0.2 mg/dL (0.1-0.3); Bilirubin, Total 0.3 mg/dL (0.2-1.2); Protein, Total 6.8 g/dL (5.8-8.1)
[2021-06-20 04:39] LABS: #Neutrophils 11.1 10x3/uL (1.5-8.4); %Basophils 0.2 % (0.0-2.0); %Lymphocytes 2.6 % (18.0-47.0); %Monocytes 7.9 % (0.0-10.0); %Neutrophils 88.3 % (40.0-75.0); Mean Corpuscular HGB CONC 34.1 g/dL (32.0-36.0); Mean Corpuscular Hemoglobin 37.7 pg (27.0-33.0); Mean Corpuscular Volume 110.5 fl (81.2-95.1); Mean Platelet Volume 11.1 fl (7.4-10.4); Platelet Count 369 10x3/uL (150-450); RBC Distribution Width 15.9 % (11.5-14.5); Red Blood Cell (RBC) Count 2.39 10x6/uL (4.32-5.72); White Blood Cell (WBC) Count 12.6 10x3/uL (3.5-10.5)
[2021-06-20 05:21] LABS: Polychromasia SLIGHT = 2-3 cells (100X) (0-2/hpf)
[2021-06-20 05:22] LABS: Platelet Morphology Comment Appears Adequate; Schistocytes SLIGHT = 2-5 cells (100X) (0-1/hpf)
[2021-06-20] MEDS: Levothyroxine Sodium 100 MCG TAB PO SCH (05:50)
[2021-06-20 08:11] LABS: Actual Bicarbonate (HCO3a) 24.6 mEq/L (22-28); Base Excess (BEa) -2.1 mEq/L (-2.0 to +3.0); CO2 Tension 52.2 mmHg (35.0-45.0); Calcium, Ionized (arterial) 1.19 mmol/L (1.12-1.30); Carboxyhemoglobin (COHb) 0.1 gm% (0.0-3.0); Hemoglobin (Hb) 9.3 g/dL (14.0-18.0); O2 Tension (PaO2), arterial 117.8 mmHg (> 60.0); Potassium - ABG Lab 4.5 mmol/L (3.70-5.30); Puncture Site RRA; pH, Arterial 7.29 (7.35-7.45)
[2021-06-20] MEDS: Dexamethasone 20 MG/5 ML VIAL SLOW IVP SCH (08:32)
[2021-06-20] MEDS: Furosemide 40 MG/4 ML VIAL SLOW IVP SCH (08:32)
[2021-06-20] MEDS: Folic Acid 1 MG TAB PO SCH (08:33)
[2021-06-20] MEDS: BARICITINIB 2 MG TAB PO SCH (08:33)
[2021-06-20] MEDS: Famotidine 20 MG TAB PO SCH (08:33)
[2021-06-20] MEDS: Finasteride 5 MG TAB PO SCH (08:33)
[2021-06-20] MEDS: Clopidogrel Bisulfate 75 MG TAB PO SCH (08:33)
[2021-06-20] MEDS: Tamsulosin HCl 0.4 MG CAP PO SCH (08:33)
[2021-06-20] MEDS: levETIRAcetam 500 mg/5 ml Oral Solution PO SCH ×2 (08:34→20:30)
[2021-06-20] MEDS: Enoxaparin Sodium 40 MG/0.4 ML SYRINGE SC SCH (08:34)
[2021-06-20] MEDS: Polyethylene Glycol 3350 17 GM Packet PO SCH (08:36)
[2021-06-20] MEDS: Atorvastatin Calcium 20 MG TAB PO SCH (08:37)
[2021-06-20] MEDS: Norepinephrine 8 MG/0.9% NS 250 ML IVPB SCH ×2 (08:51→18:19)
[2021-06-20] MEDS: fentaNYL Citrate-0.9 % NaCl/PF 100 ML IVPB SCH (23:21)
[2021-06-21 02:53] VITALS: BMI 29.0
[2021-06-21 04:18] LABS: #Basophils 0.1 10x3/uL (0.0-0.2); #Eosinphils 0.6 10x3/uL (0.0-0.5); #Monocytes 1.5 10x3/uL (0.0-1.1); #Neutrophils 9.4 10x3/uL (1.5-8.4); %Basophils 0.4 % (0.0-2.0); %Eosinophils 5.1 % (0.0-6.0); %Lymphocytes 7.7 % (18.0-47.0); %Monocytes 11.9 % (0.0-10.0); %Neutrophils 74.3 % (40.0-75.0); Hemoglobin 8.7 g/dL (13.5-17.5); Mean Corpuscular HGB CONC 31.8 g/dL (32.0-36.0); Mean Corpuscular Hemoglobin 34.8 pg (27.0-33.0); Mean Corpuscular Volume 109.6 fl (81.2-95.1); Mean Platelet Volume 10.4 fl (7.4-10.4); Platelet Count 342 10x3/uL (150-450); RBC Distribution Width 16.3 % (11.5-14.5); White Blood Cell (WBC) Count 12.6 10x3/uL (3.5-10.5)
[2021-06-21 04:29] LABS: Anion Gap 13 mmol/L (10-20); BUN (Urea Nitrogen) 77 mg/dL (8.4-25.7); Calc. Creatinine Clearance 40 mL/min (70-130); Calcium 8.5 mg/dL (7.8-10.44); Carbon Dioxide 28 mmol/L (23-31); Chloride 110 mmol/L (98-107); Glucose 155 mg/dL (83-110); Potassium 4.1 mmol/L (3.5-5.1); Sodium 147 mmol/L (136-145)
[2021-06-21] MEDS: Oxybutynin 5 MG TAB PO SCH ×3 (05:13→19:04)
[2021-06-21] MEDS: Levothyroxine Sodium 100 MCG TAB PO SCH (05:13)
[2021-06-21] MEDS: Dexamethasone 20 MG/5 ML VIAL SLOW IVP SCH (07:34)
[2021-06-21] MEDS: BARICITINIB 2 MG TAB PO SCH (07:34)
[2021-06-21] MEDS: Atorvastatin Calcium 20 MG TAB PO SCH (07:35)
[2021-06-21] MEDS: levETIRAcetam 500 mg/5 ml Oral Solution PO SCH ×2 (07:35→22:13)
[2021-06-21] MEDS: Enoxaparin Sodium 40 MG/0.4 ML SYRINGE SC SCH (07:36)
[2021-06-21] MEDS: Clopidogrel Bisulfate 75 MG TAB PO SCH (07:36)
[2021-06-21] MEDS: Folic Acid 1 MG TAB PO SCH (07:37)
[2021-06-21] MEDS: Famotidine 20 MG TAB PO SCH (07:37)
[2021-06-21] MEDS: Furosemide 40 MG/4 ML VIAL SLOW IVP SCH (07:37)
[2021-06-21] MEDS: Polyethylene Glycol 3350 17 GM Packet PO SCH (07:38)
[2021-06-21] MEDS: Tamsulosin HCl 0.4 MG CAP PO SCH (09:01)
[2021-06-21] MEDS: Finasteride 5 MG TAB PO SCH (09:01)
[2021-06-21] MEDS: Propofol 1,000 MG/100 ML VIAL IV PRN (10:51)
[2021-06-21] MEDS: chlordiazePOXIDE HCl 25 MG CAP PO SCH ×2 (11:58→18:52)
[2021-06-21] MEDS: Norepinephrine 8 MG/0.9% NS 250 ML IVPB SCH (14:42)
[2021-06-21] MEDS ORDERED: Norepinephrine 8 MG/0.9% NS 250 ML IVPB SCH (15:15)
[2021-06-22] MEDS: chlordiazePOXIDE HCl 25 MG CAP PO SCH ×2 (00:45→05:03)
[2021-06-22] MEDS: Oxybutynin 5 MG TAB PO SCH ×2 (00:45→05:04)
[2021-06-22 03:56] LABS: #Neutrophils 7.4 10x3/uL (1.5-8.4); %Basophils 0.3 % (0.0-2.0); %Eosinophils 9.6 % (0.0-6.0); %Lymphocytes 5.3 % (18.0-47.0); %Monocytes 9.9 % (0.0-10.0); %Neutrophils 74.3 % (40.0-75.0); Hemoglobin 8.2 g/dL (13.5-17.5); Mean Corpuscular HGB CONC 30.9 g/dL (32.0-36.0); Mean Platelet Volume 10.6 fl (7.4-10.4); Platelet Count 276 10x3/uL (150-450); RBC Distribution Width 15.9 % (11.5-14.5); Red Blood Cell (RBC) Count 2.41 10x6/uL (4.32-5.72); White Blood Cell (WBC) Count 9.9 10x3/uL (3.5-10.5)
[2021-06-22 04:07] LABS: Anion Gap 12 mmol/L (10-20); BUN (Urea Nitrogen) 71 mg/dL (8.4-25.7); Calc. Creatinine Clearance 42 mL/min (70-130); Calcium 8.2 mg/dL (7.8-10.44); Carbon Dioxide 30 mmol/L (23-31); Chloride 111 mmol/L (98-107); Glucose 148 mg/dL (83-110); Potassium 3.7 mmol/L (3.5-5.1); Sodium 149 mmol/L (136-145)
[2021-06-22 04:10] VITALS: TEMP 97.8
[2021-06-22 04:36] LABS: Platelet Morphology Comment Appears Adequate
[2021-06-22 04:38] LABS: Anisocytosis SLIGHT = 6-15 cells (100X) (0-5/hpf); Basophilic Stippling SLIGHT = 1-2 cells (100X) (None Seen); Hypochromia SLIGHT = 6-15 cells (100X) (0-5/hpf); Large Platelets SLIGHT; Macrocytosis SLIGHT = 6-15 cells (100X) (0-5/hpf); Microcytosis SLIGHT = 6-15 cells (100X) (0-5/hpf); Polychromasia SLIGHT = 2-3 cells (100X) (0-2/hpf)
[2021-06-22] MEDS: Propofol 1,000 MG/100 ML VIAL IV PRN (05:03)
[2021-06-22] MEDS: Levothyroxine Sodium 100 MCG TAB PO SCH (05:04)
[2021-06-22 07:42] VITALS: BP 140/68
[2021-06-22] MEDS: Famotidine 20 MG TAB PO SCH (08:25)
[2021-06-22] MEDS: Clopidogrel Bisulfate 75 MG TAB PO SCH (08:25)
[2021-06-22] MEDS: Folic Acid 1 MG TAB PO SCH (08:25)
[2021-06-22] MEDS: Atorvastatin Calcium 20 MG TAB PO SCH (08:25)
[2021-06-22] MEDS: Dexamethasone 20 MG/5 ML VIAL SLOW IVP SCH (08:26)
[2021-06-22] MEDS: levETIRAcetam 500 mg/5 ml Oral Solution PO SCH (08:26)
[2021-06-22] MEDS: Enoxaparin Sodium 40 MG/0.4 ML SYRINGE SC SCH (08:26)
[2021-06-22] MEDS: Tamsulosin HCl 0.4 MG CAP PO SCH (08:28)
[2021-06-22] MEDS: Polyethylene Glycol 3350 17 GM Packet PO SCH (08:28)
[2021-06-22] MEDS: Finasteride 5 MG TAB PO SCH (08:29)
[2021-06-22] MEDS: Morphine 4 MG/ML VIAL SLOW IVP PRN ×2 (11:25→11:57)
[2021-06-22] MEDS: Lorazepam 2 MG/ML VIAL SLOW IVP PRN ×2 (11:26→12:00)
== END 2021-06-22 13:35 | disposition expired | DRG 870 ==
LOC: CSHERS 08:34 → CSHTELE 11:37 → CSHICU 06-03 21:40 → CSHTELE 06-04 21:02 → CSHICU 06-08 11:50
PROVIDERS: ADMIT Internal Medicine; ATTEND Family Medicine
PROC: 8E0ZXY6 Isolation (ICD-10-PCS; principal; 2021-05-30)
PROC: 3E03329 Introduction of Other Anti-infective into Peripheral Vein, Percutaneous Approach (ICD-10-PCS; 2021-05-30)
PROC: XW033E5 Introduction of Remdesivir Anti-infective into Peripheral Vein, Percutaneous Approach, New Technology Group 5 (ICD-10-PCS; 2021-06-01)
PROC: 0DH67UZ Insertion of Feeding Device into Stomach, Via Natural or Artificial Opening (ICD-10-PCS; 2021-06-02)
PROC: 3E0G76Z Introduction of Nutritional Substance into Upper GI, Via Natural or Artificial Opening (ICD-10-PCS; 2021-06-02)
PROC: 5A0935A Assistance with Respiratory Ventilation, Less than 24 Consecutive Hours, High Flow/Velocity Cannula (ICD-10-PCS; 2021-06-07)
PROC: 5A1955Z Respiratory Ventilation, Greater than 96 Consecutive Hours (ICD-10-PCS; 2021-06-08)
PROC: 0BH17EZ Insertion of Endotracheal Airway into Trachea, Via Natural or Artificial Opening (ICD-10-PCS; 2021-06-08)
PROC: XW0DXM6 Introduction of Baricitinib into Mouth and Pharynx, External Approach, New Technology Group 6 (ICD-10-PCS; 2021-06-08)
PROC: 3E043XZ Introduction of Vasopressor into Central Vein, Percutaneous Approach (ICD-10-PCS; 2021-06-08)
PROC: 05H533Z Insertion of Infusion Device into Right Subclavian Vein, Percutaneous Approach (ICD-10-PCS; 2021-06-08)
DX: A41.89 Other specified sepsis (principal); U07.1 COVID-19; G92.8 Other toxic encephalopathy; J12.82 Pneumonia due to coronavirus disease 2019; J69.0 Pneumonitis due to inhalation of food and vomit; R65.21 Severe sepsis with septic shock; J80 Acute respiratory distress syndrome; I21.A1 Myocardial infarction type 2; N17.9 Acute kidney failure, unspecified; J91.8 Pleural effusion in other conditions classified elsewhere; G40.919 Epilepsy, unspecified, intractable, without status epilepticus; I69.359 Hemiplegia and hemiparesis following cerebral infarction affecting unspecified side; J44.0 Chronic obstructive pulmonary disease with (acute) lower respiratory infection; F05 Delirium due to known physiological condition; Z66 Do not resuscitate; Z51.5 Encounter for palliative care; N40.1 Benign prostatic hyperplasia with lower urinary tract symptoms; E87.6 Hypokalemia; R33.8 Other retention of urine; I12.9 Hypertensive chronic kidney disease with stage 1 through stage 4 chronic kidney disease, or unspecified chronic kidney disease; N18.9 Chronic kidney disease, unspecified; E86.0 Dehydration; G30.9 Alzheimer's disease, unspecified; I25.10 Atherosclerotic heart disease of native coronary artery without angina pectoris; F02.80 Dementia in other diseases classified elsewhere, unspecified severity, without behavioral disturbance, psychotic disturbance, mood disturbance, and anxiety; E03.9 Hypothyroidism, unspecified; E87.70 Fluid overload, unspecified; D64.9 Anemia, unspecified; E87.5 Hyperkalemia; R00.1 Bradycardia, unspecified; R45.1 Restlessness and agitation; Z79.890 Hormone replacement therapy; Z79.899 Other long term (current) drug therapy; Z79.02 Long term (current) use of antithrombotics/antiplatelets; Z87.820 Personal history of traumatic brain injury; Z91.81 History of falling
CPT/HCPCS: 36415; 36416; 36600; 70450; 71045; 71275; 74018; 80048; 80053; 80076; 80202; 81001; 82553; 82805; 83605; 83735; 83880; 84100; 84145; 84484; 85025; 86140; 87040; 87070; 87205; 87804; 93005; 93010; 94002; 94003; 94640; 94667; 94760; 96365; 96375; J0248; J0360; J0461; J0610; J0692; J1100; J1650; J1815; J1940; J2060; J2270; J2405; J2543; J2704; J3370; J3475; J3490; J7050; J7120; J7620; U0002